=== PATIENT | female | born 1975 | race Caucasian/White ===

== ENCOUNTER 2024-06-03 15:56 | Outpatient (CLI) | payer OTHER, SELFPAY ==
--- NOTE | ~2024-06-03 | US_ITS ---
EXAMINATION: US venous doppler [facility] DATE: 06/03/2024 17:06 INDICATION: Left lower limb swelling TECHNIQUE: Grayscale ultrasound images without and with compression and Doppler ultrasound images of the bilateral lower extremity veins were obtained. COMPARISON: None. FINDINGS: The visualized portions of right common femoral vein, profunda (deep) femoral vein, femoral vein, pop liteal vein, posterior tibial veins, peroneal veins, gastrocnemius vein and greater saphenous vein ou tflow are patent. The visualized portions of left common femoral vein, profunda femoral vein, femoral vein, popliteal v ein, posterior tibial veins, peroneal veins, gastrocnemius vein and greater saphenous vein outflow ar e patent. IMPRESSION: 1. No deep venous thrombosis in either lower limb. Reviewed, dictated and finalized at location A.
--- OUTSIDE RECORDS SUMMARY | 2024-06-03 17:47 | XMS_ITS | Referral Summary ---
Author Organization [facility] Address [address] [place] [address] Care Team Providers Care Package Liner Name Role Phone Dmitry Rowan MD Primary Care Provider [phone] Encounters Date Type Department Care Team Description 04/05/2024 Telephone [facility] Diabetes and Endocrinology [address] [place] [phone] Cali King MD call to patient for Insurance information from Last 3 Months Social History Tobacco Use Types Packs/Day Years Used Date Smoking Tobacco: Never Assessed Personal Safety Answer Date Recorded Getting School Help Needed Not on file 05/13 Comments Unknown Sex and Gender Information Value Date Recorded Sex Assigned at Not on file 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
--- OUTSIDE RECORDS SUMMARY | 2024-06-03 17:47 | XMS_ITS | Data Portability ---
Author Organization [facility] Isiah Frank Address [address] [facility] [address] [place] [address] Care Team Providers Care Dedicated Intermodal Truck Driver Name Role Phone MICHAEL ROWAN Primary Care Provider Assessment Encounter Date Assessment Date Assessment LastModified by Organization Details LastModified Time 05/23/2023 05/23/2023 Check labs continue medications weight reduction is a tough thing for her to do her rheumatological condition appears stable obtain old records follow-up with al in 4 months [email or web address] Not available 05/27/2023 16:18:27 09/19/2023 09/19/2023 we will continue current therapy last blood work has been reviewed healthy lifestyle care instructions discussed. Medications for her disease processes discussed all questions answered she will follow up in 4 months [email or web address] Not available 09/30/2023 16:53:52 01/23/2024 01/23/2024 blood work we wi ll try to get a GLP 1 agent healthy lifestyle care instructions she needs to get up-to-date on mammograms and colonoscopies medical problems appear to be stable follow up in 4 months [email or web address] Not available 01/27/2024 21:26:57 Plan of Treatment Reminders Order Date Submit Date Provider Last Modified By Organization Details Last Modified Time Details Appointments ANY 15 2024 09:00A Angela Rowan MD Not available Not available Not available ANY 15 2024 09:00A Angela Rowan MD Not available Not available Not available Lab lh + FSH, serum 2023 024 [facility], [address] [place] [address], [address], [place], [address], 01/24/2024 08:26:41 cortisol, serum or plasma 2023 024 [email or web address], [address], [address], [place], [address], 05/20/2024 11:09:36 HbA1c (hemoglob in A1c), blood 2023 024 [email or web address] [facility], [address], [address], [place], [address], 02/13/2024 15:19:21 TSH, ultra-sen sitive, serum 2023 024 [email or web address], [address], [address], [place], [address], 05/20/2024 11:09:07 T3, free, serum or plasma 2023 024 [email or web address], [address], [address], [place], [address], 05/20/2024 11:09:18 CBC w/ auto diff 2023 024 [facility], [address], [address], [place], [address], 01/29/2024 12:46:06 unlisted lab - T4, free 2023 024 [facility], [address], [address], [place], [address], 05/20/2024 11:08:59 CMP, serum or plasma 2023 024 [facility], [address], [address], [place], [address], 01/24/2024 18:32:56 HbA1c (hemoglob in A1c), blood 2023 024 [facility], [address] [place] [address], [address], [place], [address], 05/31/2023 11:09:22 lipid panel, serum 2023 024 [facility], [address] [place] [address], [facility] [address], [place], [address], 06/16/2023 16:23:31 CMP, serum or plasma 2023 024 [facility], [address] [place] [address], [facility] [address], [place], [address], 06/16/2023 16:23:31 CBC w/ auto diff 2023 024 [email or web address], [address] [place] [address], [facility] [address], [place], [address], 07/27/2023 16:24:48 Referral None recorded. Procedures None recorded. Surgeries None recorded. Imaging None recorded. Medication Orders Wegovy 0.25 mg/0.5 mL subcutane ous pen injector 2023 024 [facility][id number], [address] [place], [place], [id number], 06/03/2024 10:04:38 fluoxetin e 10 mg capsule [address] [facility] #[id number], [address] [place], [place], [id number], 05/23/2023 17:15:41 lisinopri l 20 mg-hydroc hlorothia zide 12.5 mg tablet [address] [facility] #[id number], [address] [facility], [place], [place], [id number], 05/23/2023 17:15:41 Patient TargetsNo targets recorded. Patient Instructions Encounter Date Encounter Id Patient Instructions Last Modified By Organization Details Last Modified Time 09/19/2023 [id number] A healthy lifestyle: care instructions [email or web address] Not available 09/19/2023 12:34:37 01/23/2024 [id number] A healthy lifestyle: care instructions [email or web address] Not available 01/23/2024 11:54:12 Reason for Referral None Reported. Results Created Date Observation Date Name Description Value Unit Range Abnormal Flag Note LastModifiedBy Organization Detail LastModifiedTime 02/23/20 24 02/23/2024 US, liver No observ ation record ed. [facility]) [address] [place] [address] [facility], [place], [address], 03/20/2024 13:02:34 06/04/19 elect rocdenise tonggr am No observ ation record ed. [facility] In-Office Order Internal Use Only DO Not Attach Compendium DO Not Attach Compendium, Do Not Delete/merge, [id number] 06/03/2024 10:38:20 06/04/19 25 06/03/2024 elect rocdenise diogr am No observ ation record ed. ARNAUD In-Office Order Internal Use Only DO Not Attach Compendium DO Not Attach Compendium, Do Not Delete/merge, [id number] 06/03/2024 10:54:23 06/04/19 25 06/03/2024 CT, angio gram, chest , w/ contr ast No observ ation record ed. [facility] [address] [place], [address], 06/03/2024 16:22:34 06/04/19 25 06/03/2024 US, doppl er, venou s No observ ation record ed. [facility] [address] [facility] [address], [place], [address], 06/03/2024 18:11:32 04/09/15 2406/03/2024 US, doppl er, venou s No observ ation record ed. [facility] [address], [place], [address], 06/03/2024 18:12:20 Result Notes None recorded. Problems Name Problem SNOMED Code Status Onset Date Resolution Date Notes Provider Name and Address Organization Details Recorded Time Essential hypertension 32371837 Active 2023 Michael Rowan MD Attn: Julee mackay,[address] [facility], [place], [address], [place] [facility] 4 16:52:37 Morbid obesity 253434048 Active 2023 Michael Rowan MD Attn: Julee mackay,[address] [facility], [place], [address], [place] [facility] 4 16:52:39 Ankylosing spondylitis 7763035 Active 2023 Michael Rowan MD Attn: Julee mackay,[address] [facility], [place], [address], [place] [facility] 4 16:52:40 Gastroesophage al reflux disease without esophagitis 313471452 Active 2023 Michael Rowan MD Attn: Julee mackay,[address] [facility], [place], [address], [place] [facility] 4 16:52:47 Anxiety 51676813 Active 2023 Michael Rowan MD Attn: Julee mackay,[address] [facility], [place], [address], [place] [facility] 4 16:52:49 Prediabetes 091319603 Active 2023 Michael Rowan MD Attn: Julee mackay,[address] [facility], [place], [address], [place] [facility] 4 16:52:50 Insomnia 755989931 Active 2023 Michael Rowan MD Attn: Julee mackay,[address] [facility], [place], [address], [place] [facility] 4 16:53:03 Obstructive sleep apnea syndrome 39604465 Active 2023 Michael Rowan MD Attn: Julee mackay,[address] [facility], [place], [address], [place] [facility] 4 16:53:35 Fatigue 13883670 Active 2023 Triston Nicolas [place] null, [place] [facility] 4 11:03:07 Non-alcoholic fatty liver 144962326 Active 2023 Triston Nicolas [place], [place] [facility] 4 11:17:54 Dyspnea on exertion 30000043 Active 2024 Triston Nicolas [place], [place] [facility] 5 10:47:57 Edema of lower extremity 705256918 Active 2024 Triston Nicolas [place] null, [place] [facility] 5 10:47:58 Problem Notes None recorded. Procedures Surgical History Date Name Laterality Status Provider Name and Address Organization Details Recorded Time Knee Surgery completed SHAYLEE Bear [place] - [facility] 05/23/2023 14:33:40 Imaging Results Imaging Date Name Status LastModified by Organization Details LastModified Time 02/23/2024 US, liver completed [facility] [address] [facility] [address] [place] [address], [address], 03/20/2024 13:02:34 06/03/2024 electrocardiogram completed ARNAUD In-Offi ce Order Internal Use Only DO Not Attach Compendium DO Not Attach Compendium, Do Not Delete/merge, [id number] 06/03/2024 10:38:20 06/03/2024 electrocardiogram completed ARNAUD In-Offi ce Order Internal Use Only DO Not Attach Compendium DO Not Attach Compendium, Do Not Delete/merge, [id number] 06/03/2024 10:54:23 06/03/2024 CT, angiogram, chest, w/ contrast active [facility] [address] [place], [address], 06/03/2024 16:22:34 06/03/2024 US, doppler, venous active [facility] [address] [facility] [address], [place], [address], 06/03/2024 18:11:32 06/03/2024 US, doppler, venous active [facility] [address] [facility] [address], [place], [address], 06/03/2024 18:12:20 Procedure Notes None recorded. Medical Equipment None Reported. Allergies Allergen ID Allergen Name Allergen Category Reaction Reaction Severity Criticality Documentation Date Start Date Code Code System Note Provider Name and Address Organization Details Recorded Time 949759 citrus bioflavon oids food,medi cation other Not available Not available 05/23/2023 23727 2 RxNorm SOB, mouth sores /lesi ons Not Available Not Available Not Available 255957 atorvasta tin medicatio n myalgias (muscle pain) Not available Not available 06/01/2023 45347 RxNorm Not Available Not Available Not Available Medications Name Sig Start Date Stop Date Status Note LastModified by Organization Details LastModified Time Prescript ion - Prior Authoriza tion Request active Not Available Not Available Not Available celecoxib 200 mg capsule 06/03 completed Not Available Not Available Not Available atorvasta tin 10 mg tablet TAKE 1 TABLET BY MOUTH EVERY DAY 05/22 completed Not Available Not Available Not Available lisinopri l 20 mg-hydroc hlorothia zide 12.5 mg tablet TAKE 1 TABLET BY MOUTH EVERY DAY active Not Available Not Available No t Available prednison e 5 mg tablet 06/03 completed Not Available Not Available Not Available lysine 1,000 mg tablet Take 1 tablet every day by oral route. active Not Available Not Available No t Available leflunomi de 10 mg tablet 06/03 completed Not Available Not Available Not Available omeprazol e 40 mg capsule,d elayed release TAKE 1 CAPSULE BY MOUTH DAILY BEFORE MEAL active Not Available Not Available No t Available methotrex ate sodium 2.5 mg tablet TAKE 5 TABLETS BY MOUTH EVERY MORNING AND 5 TABLETS EVERY EVENING ONE DAY A WEEK. 06/03 completed Not Available Not Available Not Available fluoxetin e 10 mg capsule TAKE 1 CAPSULE BY MOUTH DAILY 2024 active Not Available Not Available Not Avai lable diclofena c sodium 75 mg tablet,de layed release 09/18 completed Not Available Not Available Not Available folic acid 1 mg tablet 06/03 completed Not Available Not Available Not Available lisinopri l 10 mg-hydroc hlorothia zide 12.5 mg tablet TAKE 1 TABLET BY MOUTH DAILY 2024 active Not Available Not Available Not Avai lable zolpidem 10 mg tablet TAKE 1 TABLET BY MOUTH EVERY DAY AT BEDTIME 06/03 completed Not Available Not Available Not Available methylpre dnisolone 4 mg tablets in a dose pack FOLLOW PACKAGE DIRECTIO NS 06/03 completed Not Available Not Available Not Available amoxicill in 500 mg-potass ium clavulana te 125 mg tablet TAKE 1 TABLET BY MOUTH EVERY 8 HOURS FOR 7 DAYS 05/22 completed Not Available Not Available Not Available tobramyci n 0.3 %-dexamet hasone 0.1 % eye drops,juan pension SHAKE LIQUID AND INSTILL 1 DROP IN BOTH EYES THREE TIMES DAILY 05/22 completed Not Available Not Available Not Available ezetimibe 10 mg tablet 09/18 completed Patient stated she has had prior converst ation with stating she can't take this medicine Not Available Not Available Not Available guaifenes in 400 mg tablet Take 1 tablet every 4 hours by oral route. active Not Available Not Available No t Available Kat Allergy 180 mg tablet Take 1 tablet every day by oral route. active Not Available Not Available No t Available One-A-Day Womens Formula 18 mg iron-400 mcg-500 mg Ca tablet Take by oral route. active Not Available Not Available No t Available Simponi ARIA 06/03 completed Not Available Not Available Not Available Wegovy 0.25 mg/0.5 mL subcutane ous pen injector inject 0.25mg weekly for 4wks then go to 0.5mg weekly 06/03 completed Not Available Not Available Not Available Wegovy 0.5 mg/0.5 mL subcutane ous pen injector Inject 0.5 mg every week by subcutan eous route. 06/03 completed Not Available Not Available Not Available Hair, Skin and Nails (biotin) active Not Available Not Available Not Available Vitals Date Recorded Body height Body mass index (BMI) Body weight Heart rate Oxygen saturation Oxygen saturation in Arterial blood by Pulse oximetry Systolic blood pressure Diastolic blood pressure Provider Name and Address Organization Details Last Updated DateTime 4 167.64 cm 47.3 kg/m2 577522. 56 g 88 /min 98 % 98 % 136 mm[Hg] 80 mm[Hg] SHAYLEE Bear [facility] 4 14:36:26 Date Recorded Body height Body mass index (BMI) Body weight Heart rate Oxygen saturation Oxygen saturation in Arterial blood by Pulse oximetry Systolic blood pressure Diastolic blood pressure Provider Name and Address Organization Details Last Updated DateTime 4 167.64 cm 47.6 kg/m2 747878. 75 g 74 /min 97 % 97 % 140 mm[Hg] 84 mm[Hg] Yesika Kidd MA [facility] 4 10:26:15 Date Recorded Body height Body mass index (BMI) Body weight Heart rate Oxygen saturation Oxygen saturation in Arterial blood by Pulse oximetry Systolic blood pressure Diastolic blood pressure Provider Name and Address Organization Details Last Updated DateTime 4 167.64 cm 48 kg/m2 712434. 65 g 85 /min 97 % 97 % 132 mm[Hg] 70 mm[Hg] Joanie Lopez MA [facility] 4 10:03:30 Date Recorded Body height Body mass index (BMI) Body weight Heart rate Oxygen saturation Oxygen saturation in Arterial blood by Pulse oximetry Systolic blood pressure Diastolic blood pressure Provider Name and Address Organization Details Last Updated DateTime 5 167.64 cm 47.2 kg/m2 157631. 69 g 75 /min 97 % 97 % 146 mm[Hg] 76 mm[Hg] Judith Raymundo MA [facility] 5 10:02:05 Social History Question Answer Notes LastModified by Organizat ion Details LastModified Time Tobacco Smoking Status Never Smoker SHAYLEE Bear null, [facility] 05/23/2023 14:33:56 Do You Have An Advance Directive? No Information not available 09/19/2023 What Is Your Level Of Alcohol Consumption? None Information not available 09/19/2023 Are You Blind Or Do You Have Difficulty Seeing? No Wears Glasses Information not available 09/19/2023 What Is Your Level Of Caffeine Consumption? Heavy Information not available 09/19/2023 In The 14 Days Before Symptom Onset, Have You Had Close Contact With A Laboratory-confir med COVID-19 While That Case Was Ill? No Information not available 01/23/2024 In The 14 Days Before Symptom Onset, Have You Had Close Contact With A Person Who Is Under Investigation For COVID-19 While That Person Was Ill? No Information not available 01/23/2024 Have You Been To An Area Known To Be High Risk For COVID-19? No Information not available 01/23/2024 Are You Currently Employed? Yes Information not available 01/23/2024 Are You Deaf Or Do You Have Serious Difficulty Hearing? No Information not available 09/19/2023 What Type Of Diet Are You Following? REGULAR Information not available 09/19/2023 Are There Any Guns Present In Your Home? No Information not available 01/23/2024 What Was The Date Of Your Most Recent Tobacco Screening? 06/03/2024 Non Smoker [email or web address] Information not available 06/03/2024 What Is Your Relationship Status? Information not available 09/19/2023 Do You Use Your Seat Belt Or Car Seat Routinely? Yes Information not available 09/19/2023 Do You Have Smoke And Carbon Monoxide Detectors In Your Home? Yes Information not available 09/19/2023 Do You Feel Stressed (tense, Restless, Nervous, Or Anxious, Or Unable To Sleep At Night)? [id number] Information not available 09/19/2023 Do You Use Any Illicit Or Recreational Drugs? No Information not available 09/19/2023 Do You Use Sunscreen Routinely? Yes Information not available 01/23/2024 Has Tobacco Cessation Counseling Been Provided? No Information not available 09/19/2023 Do You Or Have You Ever Used Any Other Forms Of Tobacco Or Nicotine? No Information not available 09/19/2023 Sex: Female Functional Status Question Answer Note LastModified by Organization D etails LastModified Time Are you able to care for yourself? Yes Information n ot available 09/19/2023 What is your exercise level? None Information not available 09/19/2023 Mental Status None recorded. Family History Relationship Description Onset Age of this Age Resolved Age Notes LastModified by Organization Details LastModified Time Brother Hypertensive disorder [email or web address] Not available 04/28 14:42:14 Brother Hypercholest erolemia [email or web address] Not available 04/28 14:42:33 Father Hypertensive disorder [email or web address] Not available 04/28 14:42:14 Father Hypercholest erolemia [email or web address] Not available 04/28 14:42:33 Father Malignant neoplasm of skin metast asis to brain [email or web address] Not available 05/23/2023 14:43:21 Mother Hypertensive disorder [email or web address] Not available 04/28 14:42:14 Mother Hypercholest erolemia [email or web address] Not available 04/28 14:42:33 Medical History Condition Response High Blood Pressure Y Anxiety Disorder Y Muscle, Joint, or Bone Problems Y Acid Reflux (GERD) Y Allergies Y High Cholesterol Y Gynecological HistoryNo gynecological history recorded. Obstetrics History GPAL:G 0 P 0 0 0 0 Immunizations Vaccine Type Date Status Note Provider Nam e and Address Organization Details Recorded Time Influenza, split virus, quadrivalent, preservative 1 completed DENA BearA null, [place] [facility] 05/23/2023 14:34:18 Influenza, MDCK, quadrivalent, PF 2 completed Kyra Barnes RMA [place], [place] [facility] 05/23/2023 14:34:18 COVID-19, mRNA, LNP-S, PF, 30 mcg/0.3 mL dose 1 completed Kyra Barnes R[place] [facility] 05/23/2023 14:34:18 COVID-19, mRNA, LNP-S, PF, 30 mcg/0.3 mL dose 1 completed Kyra Barnes, RMA [place] [facility] 05/23/2023 14:34:18 COVID-19, mRNA, LNP-S, PF, 30 mcg/0.3 mL dose 1 completed Kyra Barnes, R[place] [facility] 05/23/2023 14:34:18 COVID-19, mRNA, LNP-S, PF, 30 mcg/0.3 mL dose 0 completed Kyra Barnes, [place] [facility] 05/23/2023 14:34:18 COVID-19, mRNA, LNP-S, PF, 30 mcg/0.3 mL dose 0 completed Kyra Barnes R[place] [facility] 05/23/2023 14:34:18 Past Encounters Encounter ID Performer Location Encounter Start Date Encounter Closed Date Diagnosis/Indication Diagnosis SNOMED-CT Code Diagnosis ICD10 Code Diagnosis Note [id number] MD Opal Lopez (Adult Med) [address] [place] [address] 05/23/2023 14:06:14 05/23/2023 15:22:44 Hyperglycemia 68085169 R73.9 Gastroesop hageal reflux disease without esophagitis 890335801 K21.9 Obesity 626394354 E66.9 Insomnia 444429938 G47.0 0 Essential hypertension 26912851 I10 Ankylosing spondylitis 4947005 M45.9 [id number] MD Opal Lopez (Adult Med) [address] [place] [address] 09/19/2023 10:11:34 09/19/2023 11:01:19 Morbid obesity 191577405 E66.01 Essential hypertension 14035151 I10 Ankylosing spondylitis 9854064 M45.9 Gastroesop hageal reflux disease without esophagitis 783042873 K21.9 Anxiety 55105853 F41.9 Prediabetes 657144827 R7 3.03 Insomnia 782342406 G47.0 0 Obstructiv e sleep apnea syndrome 63980107 G47.33 [id number] MD Opal Lopez (Adult Med) [address] [place] [address] 01/23/2024 09:52:17 01/23/2024 11:07:24 Morbid obesity 503141645 E66.01 Fatigue 97158152 R53.83 Non-menopa usal hot flash 8396009990 57219 R23.2 Diabetes m ellitus screening 251257709 Z13.1 Essential hypertension 89018140 I10 Anxiety 05083004 F41.9 Gastroesop hageal reflux disease without esophagitis 159273625 K21.9 Obstructiv e sleep apnea syndrome 12274727 G47.33 [id number] [facility] [place] [address] [place] [address] 06/03/2024 09:49:50 06/03/2024 10:46:32 Body mass index 40+ - severely obese 243074540 Z68.42 Morbid obesity 694856131 E66.01 Dyspnea 929126079 R06.00 Dyspnea on exertion 6084 5006 R06.09 Edema of l ower extremity 400920888 R60.0 Edema of l eft lower limb 867655223 R60.0 Health Concerns Section Related Observation LastModified by Organization Detai ls LastModified Time None Recorded Concern Status LastModified by Organization Details LastModified Time None Recorded Advance Directives Directive N: Payers Encounter Date Sequence Insurance Name Policy Number Policy [place] Covered Member ID [place] Member ID Guarantor Name 05/23/2023 1 [place] [id number] Sandhya Jamie [id number] Sandhya Jamie 09/19/2023 1 [place] [id number] Sandhya Jamie [id number] Sandhya Jamie 01/23/2024 1 [place] [id number] Sandhya Jamie [id number] Sandhya Jamie Notes Date Note Type Note Provider Name and Address Organization Details Recorded Time 05/23/2023 text/html We need to check an A1c anxiety doing fine on fluoxetine GERD stable obesity already lose weight insomnia doing well on current meds ankylosing spondylitis she is on injectables hypertension no headache no dizziness Michael Rowan MD Attn: Accounting,[address] [place], [address], [place] [facility] 05/27/2023 16:19:04 09/19/2023 text/html 1. Hypertension no headache no dizziness.2. Insomnia using her Ambien no side effects appears to be efficacious3. Obesity needs help4. Ankylosing spondylitis on methotrexate and Simponi with breakthrough Celebrex5. GERD no nausea no vomiting Michael Rowan MD Attn: Accounting[address] [facility], [place], [address], [facility] 09/30/2023 16:54:12 01/23/2024 text/html hypertension no headache or dizziness. 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 Daryl marie in his up-to-date on mammograms uses her CPAP for sleep apnea Michael Rowan MD Attn: Accounting[address] , [place], [address], [facility] 01/27/2024 21:27:18 OBGyn Episode No OBEpisode recorded.
--- OUTSIDE RECORDS SUMMARY | 2024-06-03 17:47 | XMS_ITS | Clinical Summary ---
Author Organization [facility] Address [address] [place] [address] Care Team Providers Care Check Processing Clerk Name Role Phone Dmitry Rowan MD Primary Care Provider [phone] Source Comments [facility],non-owned Affiliates and Associated Physician Practices is amultiple site organization consisting of ambulatory clinics and hospital sitesin [place], [place], [place] and [place]. This disclosure is being madepursuant to the Care Everywhere program and may not contain all information available regarding this patient. Last updated 17.[facility] Social Point Social History Tobacco Use Types Packs/Day Years Used Date Smoking Tobacco: Never Assessed Sex and Gender Information Value Date Recorded Sex Assigned at Not on file Gender Identity Not on file Sexual Orientation Not on file Plan of Treatment Upcoming Encounters Date Type Department Care Team (Late st Contact Info) Description 11/26/2024 1:00 PM CDT Office Visit [facility] - Rheumatology [address] [place] [address], [place] [phone] Renetta Mosquera MD [address] [place] [address] [place] [id number] Health Maintenance Due Date Last Done Comments COLOGUARD (AGES 45-75) - COL ON CA SCREENING 1976 COLON MONITORING 1976 COLONOSCOPY - COLON CA SCREENING 1976 CT COLONOGRAPHY - COLON CA SCREENING 1976 Colorectal Cancer Screening 1976 FIT - COLON CA SCREENING 1976 FLEX SIG - COLON CA SCREENING 1976 LIPID TESTING 1976 MAMMOGRAM 1976 PAP SMEAR 1976 HIV SCREENING 08/14/1991 HEPATITIS C SCREENING 08/09/1994 DTAP/TDAP/TD VACCINES (1 - Tdap) 08/14/1995 HEPATITIS B VACCINE (1 of 3 - 19+ 3-dose series) 08/14/1995 COVID-19 VACCINE (1 - 2023-2 5 season) 2023 INFLUENZA VACCINE (#1) 2023 DEPRESSION SCREENING 02/28/2024 ZOSTER VACCINE (1 of 2) 2026 HIB VACCINE Aged Out No longer eligi ble based on patient's age to complete this topic HPV VACCINE Aged Out No longer eligi ble based on patient's age to complete this topic MENINGOCOCCAL (Group B) VACC INE SHARED DECISION-MAKING Aged Out No longer eligibl e based on patient's age to complete this topic MENINGOCOCCAL GROUPS A/C/Y/W VACCINE Aged Out No longer eligible b ased on patient's age to complete this topic PNEUMOCOCCAL VACCINE Aged Out No long er eligible based on patient's age to complete this topic Care Teams Check Processing Clerk Relationship Specialty Start Date End Date Dmitry Rowan MD [address] [place] [id number] PCP - General Internal Medicine 05/22/24
--- OUTSIDE RECORDS SUMMARY | 2024-06-03 17:48 | XMS_ITS | Data Portability ---
Author Organization [place] [facility], Main Office Address [address] [place] [address] Assessment Encounter Date Assessment Date Assessment LastModified by Organization Details LastModified Time 07/08/2022 07/08/2022 No thyroid cancer nothing to suggest ME in 2 in family will try to get G LP injectable for joint pain check inflammatory factors hypertension check blood work fatigue check blood work obesity check blood work see me back in 4 weeks if starts injectable 4 months if not. Blood work reviewed [id number] Not available 07/24/2022 13:32:56 12/07/2022 12/07/2022 Will check blood work she needs to get back on her medications regularly I would like to see her back in about 1 month Not available 12/10/2022 13:42:37 Plan of Treatment Reminders Order Date Submit Date Provider Last Modified By Organization Details Last Modified Time Details Appointments None recorded. Lab T3, free, serum or plasma 2022 023 [email or web address] [facility] (Lab), [address] [place], [address], 16:44:29 T4, free, serum 2022 023 [email or web address] [facility] (Lab), [address] [place], [address], 16:44:29 TSH, serum or plasma 2022 023 [facility] (Lab), [address] [place], [address], 10/11/202 3 16:44:29 CBC w/ auto diff [address] (Lab), [address] [place], [address], 3 16:44:29 lipid panel, serum [address] (Lab), [address] [place], [address], 3 16:44:29 CMP, serum or plasma [address] (Lab), [address] [place], [address], 3 16:44:29 ESR (erythrocyt e sedimentati on rate), blood [address] (Lab), [address] [place], [address], 3 16:44:29 C-reactive protein, quantitativ e, serum or plasma 2022 023 [email or web address] [facility] (Lab), [address] [place], [address], 4 09:42:32 glycohemogl obin, total, blood [address] (Lab), [address] [place], [address], 3 16:44:29 vitamin D, 25-hydroxy, total, serum 2022 023 [email or web address] [facility] (Lab), [address] [place], [address], 3 14:10:16 HbA1c (hemoglobin A1c), blood 2022 023 [facility] (Lab), [address] [place], [address], 3 11:55:52 TSH, serum or plasma 2022 023 [facility] (Lab), [address] [place], [address], 3 11:55:52 T4, free, serum 2022 023 [facility] (Lab), [address] [place], [address], 3 11:55:53 T3, free, serum or plasma 2022 023 [facility] (Lab), [address] [place], [address], 3 11:55:53 ESR (erythrocyt e sedimentati on rate), blood 2022 023 [facility] (Lab), [address] [place], [address], 3 11:55:53 rf (rheumatoid factor), serum 2022 023 [facility] (Lab), [address] [place], [address], 3 09:51:16 C-reactive protein, quantitativ e, serum or plasma 2022 023 [facility] (Lab), [address] [place], [address], 3 11:55:53 Referral None recorded. Procedures None recorded. Surgeries None recorded. Imaging None recorded. Medication Orders Wegovy 0.25 mg/0.5 mL subcutaneou s pen injector 2022 023 [email or web address] [facility] #[id number], [address], [place], [id number], 3 16:44:29 Wegovy 0.5 mg/0.5 mL subcutaneou s pen injector 2022 023 [email or web address] [facility] #[id number], [address], [place], [id number], 3 16:44:29 Wegovy 0.25 mg/0.5 mL subcutaneou s pen injector 2022 023 [email or web address] 45 [facility] #[id number], [address], [place], [id number], 3 11:32:49 Wegovy 0.5 mg/0.5 mL subcutaneou s pen injector 2022 023 [email or web address] 45 [facility] #[id number], [address], [place], [id number], 11:32:52 Patient TargetsNo targets recorded. Patient InstructionsNo instructions recorded. Reason for Referral None Reported. Results Created Date Observation Date Name Description Value Unit Range Abnormal Flag Note LastModifiedBy Organization Detail LastModifiedTime 12/08/1912/07/2022 CBC/C OMPLE TE BLD COUNT W/DIF F white blood cells 9.3 x10'3 /uL 4.2-10 .8 Not Available [facility] (Lab) [address] [place], [address], 12/07/2022 14:04:41 12/08/1912/07/2022 CBC/C OMPLE TE BLD COUNT W/DIF F red blood cells 4.62 x10'6 /uL 3.80-5 .20 Not Available [facility] (Lab) [address] [place], [address], 12/07/2022 14:04:41 12/08/1912/07/2022 CBC/C OMPLE TE BLD COUNT W/DIF F hemoglobin 13.3 g/dL 12.0-1 5.6 Not Available [facility] (Lab) [address] [place], [address], 12/07/2022 14:04:41 12/08/1912/07/2022 CBC/C OMPLE TE BLD COUNT W/DIF F hematocrit 41.8 % 35.7-4 5.7 Not Available [facility] (Lab) [address] [place], [address], 12/07/2022 14:04:41 12/08/1912/07/2022 CBC/C OMPLE TE BLD COUNT W/DIF F mean red cell volume 90.5 fL 82.0-9 9.0 Not Available [facility] (Lab) [address] [place], [address], 12/07/2022 14:04:41 12/08/1912/07/2022 CBC/C OMPLE TE BLD COUNT W/DIF F mean red cell hemoglobin 28.8 pg 27.0-3 3.0 Not Available [facility] (Lab) [address] [place], [address], 12/07/2022 14:04:41 12/08/1912/07/2022 CBC/C OMPLE TE BLD COUNT W/DIF F mean RBC HGB concentratio n 31.8 g/dL 31.0-3 6.0 Not Available [facility] (Lab) [address] [place], [address], 12/07/2022 14:04:41 12/08/19 23 12/07/2022 CBC/C OMPLE TE BLD COUNT W/DIF F red cell distribution width 14.0 % 11.8-1 5.5 Not Available [facility] (Lab) [address] [place], [address], 12/07/2022 14:04:41 12/08/1912/07/2022 CBC/C OMPLE TE BLD COUNT W/DIF F platelets 423 x10'3 /uL 150-40 0 high Not Available [facility] (Lab) [address] [place], [address], 12/07/2022 14:04:41 12/08/1912/07/2022 CBC/C OMPLE TE BLD COUNT W/DIF F mean platelet volume 10.5 fL 9.0-12 .4 Not Available [facility] (Lab) [address] [place], [address], 12/07/2022 14:04:41 12/08/1912/07/2022 CBC/C OMPLE TE BLD COUNT W/DIF F neutrophils 57.7 % 39.0-7 2.0 Not Available [facility] (Lab) [address] [place], [address], 12/07/2022 14:04:41 12/08/1912/07/2022 CBC/C OMPLE TE BLD COUNT W/DIF F lymphocytes 32.5 % 16.0-4 7.0 Not Available [facility] (Lab) [address] [place], [address], 12/07/2022 14:04:41 12/08/1912/07/2022 CBC/C OMPLE TE BLD COUNT W/DIF F monocytes 6.0 % 5.0-12 .0 Not Available [facility] (Lab) [address] [place], [address], 12/07/2022 14:04:41 12/08/19 23 12/07/2022 CBC/C OMPLE TE BLD COUNT W/DIF F eosinophils 2.1 % 1.0-7. 0 Not Available [facility] (Lab) [address] [facility] [place], [address], 12/07/2022 14:04:41 12/08/1912/07/2022 CBC/C OMPLE TE BLD COUNT W/DIF F basophils 0.8 % 0.0-2. 0 Not Available [facility] (Lab) [address] [place], [address], 12/07/2022 14:04:41 12/08/1912/07/2022 CBC/C OMPLE TE BLD COUNT W/DIF F immature granulocytes 0.9 % 0.00-0 .50 high Not Available [facility] (Lab) [address] [place], [address], 12/07/2022 14:04:41 12/08/1912/07/2022 CBC/C OMPLE TE BLD COUNT W/DIF F neutrophils, absolute count 5.39 x10'3 /uL 1.5-8. 0 Not Available [facility] (Lab) [address] [place], [address], 12/07/2022 14:04:41 12/08/1912/07/2022 CBC/C OMPLE TE BLD COUNT W/DIF F lymphocytes, absolute count 3.03 x10'3 /uL 1.07-3 .43 Not Available [facility] (Lab) [address] [place], [address], 12/07/2022 14:04:41 12/08/1912/07/2022 CBC/C OMPLE TE BLD COUNT W/DIF F monocytes, absolute count 0.56 x10'3 /uL 0.29-0 .99 Not Available [facility] (Lab) [address] [place], [address], 12/07/2022 14:04:41 12/08/19 23 12/07/2022 CBC/C OMPLE TE BLD COUNT W/DIF F eosinophils, absolute count 0.20 x10'3 /uL 0.02-0 .53 Not Available [facility] (Lab) [address] [place], [address], 12/07/2022 14:04:41 12/08/1912/07/2022 CBC/C OMPLE TE BLD COUNT W/DIF F basophils, absolute count 0.07 x10'3 /uL 0.01-0 .08 Not Available [facility] (Lab) [address] [place], [address], 12/07/2022 14:04:41 12/08/1912/07/2022 CBC/C OMPLE TE BLD COUNT W/DIF F immature granulocytes ,absolute 0.08 x10'3 /uL 0.00-0 .05 high Not Available [facility] (Lab) [address] [place], [address], 12/07/2022 14:04:41 12/08/1912/07/2022 CBC/C OMPLE TE BLD COUNT W/DIF F nucleated red blood cells 0.0 % -0 Not Available [facility] (Lab) [address] [place], [address], 12/07/2022 14:04:41 12/08/1912/07/2022 CBC/C OMPLE TE BLD COUNT W/DIF F NRBC# 0.00 x10'3 /uL Not Available [facility] (Lab) [address] [place], [address], 12/07/2022 14:04:41 12/08/1912/07/2022 SEDIM ENTAT ION RATE erythrocyte sedimentatio n rate 13 mm/HR 0-20 Not Available [facility] (Lab) [address] [place], [address], 12/07/2022 14:41:56 12/08/1912/07/2022 LIPID PANEL cholesterol 237 mg/dL 140-19 9 high NIH GRUPO NSUS RECOM MENDA TION FOR MARIIA STERO L: ADULT CHILD LOW RISK: <200 <170 BORDE RLINE : <200- 239 ----- HIGH RISK: >240 >200 Not Available [facility] (Lab) [address] [place], [address], 12/07/2022 14:42:05 12/08/1912/07/2022 LIPID PANEL triglyceride s 174 mg/dL 0-150 high NIH GRUPO NSUS REPOR T RECOM MENDA TION FOR TRIGL YCERI SHARAN: ADULT CHILD LOW RISK: <150 ----- BODER LINE: 150-1 99 ----- HIGH RISK: >200 ----- Not Available [facility] (Lab) [address] [place], [address], 12/07/2022 14:42:05 12/08/1912/07/2022 LIPID PANEL HDL cholesterol 61 mg/dL 40- Not Available [facility] (Lab) [address] [place], [address], 12/07/2022 14:42:05 12/08/1912/07/2022 LIPID PANEL LDL cholesterol, calculated 141 mg/dL 0-130 high NIH GRUPO NSUS REPOR T RECOM MENDA TIONS FOR LDL: ADULT CHILD LOW RISK <130 <110 (OPTI MAL LDL) <100 ----- BORDE RLINE : 130-1 59 ----- HIGH RISK: >160 >130 A TRIGL YCERI DE RESUL T >400 INVAL IDATE S THE CALCU LATIO N FOR LDL FRACT IONAT ION - THE LDL RESUL T WILL NOT BE REPOR SHREE. Not Available [facility] (Lab) [address] [place], [address], 12/07/2022 14:42:05 12/08/19 23 12/07/2022 COMPR EHENS DARCY METAB OLIC PANEL sodium 138 mmol/ L 137-14 5 Not Available [facility] (Lab) [address] [place], [address], 12/07/2022 14:42:16 12/08/1912/07/2022 COMPR EHENS DARCY METAB OLIC PANEL potassium 4.3 mmol/ L 3.5-5. 1 Not Available [facility] (Lab) [address] [place], [address], 12/07/2022 14:42:16 12/08/1912/07/2022 COMPR EHENS DARCY METAB OLIC PANEL chloride 105 mmol/ L 98-107 Not Available [facility] (Lab) [address] [place], [address], 12/07/2022 14:42:16 12/08/1912/07/2022 COMPR EHENS DARCY METAB OLIC PANEL carbon dioxide 26 mmol/ L 22-30 Not Available [facility] (Lab) [address] [place], [address], 12/07/2022 14:42:16 12/08/1912/07/2022 COMPR EHENS DARCY METAB OLIC PANEL anion gap 11.3 mmol/ L 14-22 low Not Available [facility] (Lab) [address] [place], [address], 12/07/2022 14:42:16 12/08/1912/07/2022 COMPR EHENS DARCY METAB OLIC PANEL glucose 93 mg/dL 70-99 Not Available [facility] (Lab) [address] [place], [address], 12/07/2022 14:42:16 12/08/1912/07/2022 COMPR EHENS DARCY METAB OLIC PANEL BUN 17 mg/dL 8-19 Not Available [facility] (Lab) [address] [place], [address], 12/07/2022 14:42:16 12/08/1912/07/2022 COMPR EHENS DARCY METAB OLIC PANEL creatinine 0.64 mg/dL 0.66-1 .25 low Not Available [facility] (Lab) [address] [place], [address], 12/07/2022 14:42:16 12/08/1912/07/2022 COMPR EHENS DARCY METAB OLIC PANEL GFR >60 Refer ence Range : [place] ge GFR Healt hy Adult : >60 mL/mi n/1.7 3 m2 Chron ic Kidne y Disea se: 15-60 mL/mi n/1.7 3 m2 Kidne y Failu re: <15/m L/min /1.73 m2 www.n iddk. nih.g ov The MDRD study equat ion has not been valid ated in child jennifer <18 years of age; pregn ant women ; the elder ly >85 years of age; or in some racia l or ethni c subgr oups, such as Hispa nics. Outsi de the valid ated keith eters , estim ated GFR is less accur ate, requi ring clini shruthi judgm ent on a case- by-ca se basis . Clini shruthi inter preta tion for other races and ages must be made by the clini eros. The MDRD study equat ion has not been valid ated for the evalu ation of serum creat inine relat ed to nutri tj l statu s or medic ation usage . For perso ns <18 years of age, a pedia tric GFR calcu lator is avail able on the F websi te: https ://spenser w.kid juan.o rg/pr mehrdadess ional s/kdo qi/gf r_cal culat or Not Available [facility] (Lab) [address] [place], [address], 12/07/2022 14:42:16 12/08/1912/07/2022 COMPR EHENS DARCY METAB OLIC PANEL alkaline phosphatase 67 U/L 38-126 Not Available [facility] (Lab) [address] [place], [address], 12/07/2022 14:42:16 12/08/1912/07/2022 COMPR EHENS DARCY METAB OLIC PANEL alanine aminotransfe rase 26 U/L 0-35 Not Available [facility] (Lab) [address] [place], [address], 12/07/2022 14:42:16 12/08/1912/07/2022 COMPR EHENS DARCY METAB OLIC PANEL aspartate aminotransfe rase 19 U/L 15-37 Not Available [facility] (Lab) [address] [place], [address], 12/07/2022 14:42:16 12/08/1912/07/2022 COMPR EHENS DARCY METAB OLIC PANEL bilirubin, total 0.60 mg/dL 0.20-1 .30 Not Available [facility] (Lab) [address] [place], [address], 12/07/2022 14:42:16 12/08/1912/07/2022 COMPR EHENS DARCY METAB OLIC PANEL calcium 10.6 mg/dL 8.4-10 .2 high Not Available [facility] (Lab) [address] [place], [address], 12/07/2022 14:42:16 12/08/1912/07/2022 COMPR EHENS DARCY METAB OLIC PANEL total protein 7.3 g/dL 6.3-8. 2 Not Available [facility] (Lab) [address] [place], [address], 12/07/2022 14:42:16 12/08/1912/07/2022 COMPR EHENS DARCY METAB OLIC PANEL albumin 4.3 g/dL 3.4-5. 0 Not Available [facility] (Lab) [address] [place], [address], 12/07/2022 14:42:16 12/08/1919 1212/07/2022 COMPR EHENS DARCY METAB OLIC PANEL globulin 3.0 g/dL 2.6-4. 2 Not Available [facility] (Lab) [address] [place], [address], 12/07/2022 14:42:16 12/08/19 23 12/07/2022 COMPR EHENS DARCY METAB OLIC PANEL A/G ratio 1.4 ratio 1.0-2. 0 Not Available [facility] (Lab) [address] [place], [address], 12/07/2022 14:42:16 12/08/1912/07/2022 T3 FREE free T3 4.0 pg/mL 2.77-5 .27 Not Available [facility] (Lab) [address] [place], [address], 12/07/2022 14:51:19 12/08/1912/07/2022 T4 FREE free T4 1.15 NG/dL 0.78-2 .19 Not Available [facility] (Lab) [address] [place], [address], 12/07/2022 14:51:21 12/08/1912/07/2022 VITAM IN D 25-HY DROXY [id number] 30.2 NG/mL 30-100 Vitam in D Statu s: Defic ient: <20 ng/mL Insuf ficie nt: 20-29 ng/mL Suffi cient : 30-10 0 ng/mL Not Available [facility] (Lab) [address] [place], [address], 12/07/2022 14:59:08 12/08/1912/07/2022 HEMOG LOBIN A1C HA1C 6.2 % 4.0-6. 0 high Diabe ilya Scree charis Crite manuel: <5.7% Consi stent with absen ce of diabe ilya 5.7-6 .4% Consi stent with incre ased risk for diabe ilya (pred iabet es) >OR=6 .5% Consi stent with diabe ilya REFER ENCE: Diabe ilya Care 2016, 39(White ppl.1 ):s13 -s22 Not Available [facility] (Lab) [address] [place], [address], 12/07/2022 15:06:39 12/08/1912/07/2022 TSH thyroid-stim ulating hormone 1.420 uIU/m L 0.465- 4.680 Not Available [facility] (Lab) [address] [place], [address], 12/07/2022 15:11:05 12/08/1912/07/2022 C REACT DARCY PROTE IN,UL TRA SENS C-reactive protein 0.91 mg/dL 0.0-0. 5 high Not Available [facility] (Lab) [address] [place], [address], 12/07/2022 15:17:46 05/23/19 24 05/23/2023 CBC/C OMPLE TE BLD COUNT W/DIF F white blood cells 8.6 x10'3 /uL 4.2-10 .8 Not Available [facility] (Lab) [address] [place], [address], 05/23/2023 16:28:23 05/23/19 24 05/23/2023 CBC/C OMPLE TE BLD COUNT W/DIF F red blood cells 4.20 x10'6 /uL 3.80-5 .20 Not Available [facility] (Lab) [address] [place], [address], 05/23/2023 16:28:23 05/23/19 24 05/23/2023 CBC/C OMPLE TE BLD COUNT W/DIF F hemoglobin 12.5 g/dL 12.0-1 5.6 Not Available [facility] (Lab) [address] [place], [address], 05/23/2023 16:28:23 05/23/19 24 05/23/2023 CBC/C OMPLE TE BLD COUNT W/DIF F hematocrit 37.9 % 35.7-4 5.7 Not Available [facility] (Lab) [address] [place], [address], 05/23/2023 16:28:23 05/23/19 24 05/23/2023 CBC/C OMPLE TE BLD COUNT W/DIF F mean red cell volume 90.2 fL 82.0-9 9.0 Not Available [facility] (Lab) [address] [place], [address], 05/23/2023 16:28:23 05/23/19 24 05/23/2023 CBC/C OMPLE TE BLD COUNT W/DIF F mean red cell hemoglobin 29.8 pg 27.0-3 3.0 Not Available [facility] (Lab) [address] [place], [address], 05/23/2023 16:28:23 05/23/19 24 05/23/2023 CBC/C OMPLE TE BLD COUNT W/DIF F mean RBC HGB concentratio n 33.0 g/dL 31.0-3 6.0 Not Available [facility] (Lab) [address] [place], [address], 05/23/2023 16:28:23 05/23/19 24 05/23/2023 CBC/C OMPLE TE BLD COUNT W/DIF F red cell distribution width 15.4 % 11.8-1 5.5 Not Available [facility] (Lab) [address] [place], [address], 05/23/2023 16:28:23 05/23/19 24 05/23/2023 CBC/C OMPLE TE BLD COUNT W/DIF F platelets 418 x10'3 /uL 150-40 0 high Not Available [facility] (Lab) [address] [place], [address], 05/23/2023 16:28:23 05/23/19 24 05/23/2023 CBC/C OMPLE TE BLD COUNT W/DIF F mean platelet volume 10.4 fL 9.0-12 .4 Not Available [facility] (Lab) [address] [place], [address], 05/23/2023 16:28:23 05/23/19 24 05/23/2023 CBC/C OMPLE TE BLD COUNT W/DIF F neutrophils 49.5 % 39.0-7 2.0 Not Available [facility] (Lab) [address] [place], [address], 05/23/2023 16:28:23 05/23/19 24 05/23/2023 CBC/C OMPLE TE BLD COUNT W/DIF F lymphocytes 41.0 % 16.0-4 7.0 Not Available [facility] (Lab) [address] [place], [address], 05/23/2023 16:28:23 05/23/19 24 05/23/2023 CBC/C OMPLE TE BLD COUNT W/DIF F monocytes 6.0 % 5.0-12 .0 Not Available [facility] (Lab) [address] [place], [address], 05/23/2023 16:28:23 05/23/19 24 05/23/2023 CBC/C OMPLE TE BLD COUNT W/DIF F eosinophils 2.6 % 1.0-7. 0 Not Available [facility] (Lab) [address] [place], [address], 05/23/2023 16:28:23 05/23/19 24 05/23/2023 CBC/C OMPLE TE BLD COUNT W/DIF F basophils 0.5 % 0.0-2. 0 Not Available [facility] (Lab) [address] [place], [address], 05/23/2023 16:28:23 05/23/19 24 05/23/2023 CBC/C OMPLE TE BLD COUNT W/DIF F immature granulocytes 0.4 % 0.00-0 .50 Not Available [facility] (Lab) [address] [place], [address], 05/23/2023 16:28:23 05/23/19 24 05/23/2023 CBC/C OMPLE TE BLD COUNT W/DIF F neutrophils, absolute count 4.26 x10'3 /uL 1.5-8. 0 Not Available [facility] (Lab) [address] [place], [address], 05/23/2023 16:28:23 05/23/19 24 05/23/2023 CBC/C OMPLE TE BLD COUNT W/DIF F lymphocytes, absolute count 3.51 x10'3 /uL 1.07-3 .43 high Not Available [facility] (Lab) [address] [place], [address], 05/23/2023 16:28:23 05/23/19 24 05/23/2023 CBC/C OMPLE TE BLD COUNT W/DIF F monocytes, absolute count 0.51 x10'3 /uL 0.29-0 .99 Not Available [facility] (Lab) [address] [place], [address], 05/23/2023 16:28:23 05/23/19 24 05/23/2023 CBC/C OMPLE TE BLD COUNT W/DIF F eosinophils, absolute count 0.22 x10'3 /uL 0.02-0 .53 Not Available [facility] (Lab) [address] [place], [address], 05/23/2023 16:28:23 05/23/19 24 05/23/2023 CBC/C OMPLE TE BLD COUNT W/DIF F basophils, absolute count 0.04 x10'3 /uL 0.01-0 .08 Not Available [facility] (Lab) [address] [place], [address], 05/23/2023 16:28:23 05/23/19 24 05/23/2023 CBC/C OMPLE TE BLD COUNT W/DIF F immature granulocytes ,absolute 0.03 x10'3 /uL 0.00-0 .05 Not Available [facility] (Lab) [address] [place], [address], 05/23/2023 16:28:23 05/23/19 24 05/23/2023 CBC/C OMPLE TE BLD COUNT W/DIF F nucleated red blood cells 0.0 % -0 Not Available [facility] (Lab) [address] [place], [address], 05/23/2023 16:28:23 05/23/19 24 05/23/2023 CBC/C OMPLE TE BLD COUNT W/DIF F NRBC# 0.00 x10'3 /uL Not Available [facility] (Lab) [address] [place], [address], 05/23/2023 16:28:23 05/23/19 24 05/23/2023 LIPID PANEL cholesterol 249 mg/dL 140-19 9 high NIH GRUPO NSUS RECOM MENDA TION FOR MARIIA STERO L: ADULT CHILD LOW RISK: <200 <170 BORDE RLINE : <200- 239 ----- HIGH RISK: >240 >200 Not Available [facility] (Lab) [address] [place], [address], 05/23/2023 17:21:27 05/23/19 24 05/23/2023 LIPID PANEL triglyceride s 206 mg/dL 0-150 high NIH GRUPO NSUS REPOR T RECOM MENDA TION FOR TRIGL YCERI SHARAN: ADULT CHILD LOW RISK: <150 ----- BODER LINE: 150-1 99 ----- HIGH RISK: >200 ----- Not Available [facility] (Lab) [address] [place], [address], 05/23/2023 17:21:27 05/23/19 24 05/23/2023 LIPID PANEL HDL cholesterol 77 mg/dL 40- Not Available [facility] (Lab) [address] [place], [address], 05/23/2023 17:21:27 05/23/19 24 05/23/2023 LIPID PANEL LDL cholesterol, calculated 131 mg/dL 0-130 high NIH GRUPO NSUS REPOR T RECOM MENDA TIONS FOR LDL: ADULT CHILD LOW RISK <130 <110 (OPTI MAL LDL) <100 ----- MICHELLE RLINE : 130-1 59 ----- HIGH RISK: >160 >130 A TRIGL YCERI DE RESUL T >400 INVAL IDATE S THE CALCU LATIO N FOR LDL FRACT IONAT ION - THE LDL RESUL T WILL NOT BE REPOR SHREE. Not Available [facility] (Lab) [address] [place], [address], 05/23/2023 17:21:27 05/23/19 24 05/23/2023 COMPR EHENS DARCY METAB OLIC PANEL sodium 134 mmol/ L 137-14 5 low Not Available [facility] (Lab) [address] [place], [address], 05/23/2023 17:21:40 05/23/19 24 05/23/2023 COMPR EHENS DARCY METAB OLIC PANEL potassium 4.3 mmol/ L 3.5-5. 1 Not Available [facility] (Lab) [address] [place], [address], 05/23/2023 17:21:40 05/23/19 24 05/23/2023 COMPR EHENS DARCY METAB OLIC PANEL chloride 105 mmol/ L 98-107 Not Available [facility] (Lab) [address] [place], [address], 05/23/2023 17:21:40 05/23/19 24 05/23/2023 COMPR EHENS DARCY METAB OLIC PANEL carbon dioxide 24 mmol/ L 22-30 Not Available [facility] (Lab) [address] [place], [address], 05/23/2023 17:21:40 05/23/19 24 05/23/2023 COMPR EHENS DARCY METAB OLIC PANEL anion gap 9.3 mmol/ L 14-22 low Not Available [facility] (Lab) [address] [place], [address], 05/23/2023 17:21:40 05/23/19 24 05/23/2023 COMPR EHENS DARCY METAB OLIC PANEL glucose 98 mg/dL 70-99 Not Available [facility] (Lab) [address] [place], [address], 05/23/2023 17:21:40 05/23/19 24 05/23/2023 COMPR EHENS DARCY METAB OLIC PANEL BUN 19 mg/dL 8-19 Not Available [facility] (Lab) [address] [place], [address], 05/23/2023 17:21:40 05/23/19 24 05/23/2023 COMPR EHENS DARCY METAB OLIC PANEL creatinine 0.64 mg/dL 0.66-1 .25 low Not Available [facility] (Lab) [address] [place], [address], 05/23/2023 17:21:40 05/23/19 24 05/23/2023 COMPR EHENS DARCY METAB OLIC PANEL GFR >60 Refer ence Range : [place] ge GFR Healt hy Adult : >60 mL/mi n/1.7 3 m2 Chron ic Kidne y Disea se: 15-60 mL/mi n/1.7 3 m2 Kidne y Failu re: <15/m L/min /1.73 m2 [email or web address] ov The MDRD study equat ion has not been valid ated in child jennifer <18 years of age; pregn ant women ; the elder ly >85 years of age; or in some racia l or ethni c subgr oups, such as Hispa nics. Outsi de the valid ated keith eters , estim ated GFR is less accur ate, requi ring clini shruthi judgm ent on a case- by-ca se basis . Clini shruthi inter preta tion for other races and ages must be made by the clini eros. The MDRD study equat ion has not been valid ated for the evalu ation of serum creat inine relat ed to nutri tj l statu s or medic ation usage . For perso ns <18 years of age, a pedia tric GFR calcu lator is avail able on the [facility] websi te: https ://spenser redding.alejandro martinez.o rg/pr ofess ional s/kdo qi/gf r_cal culat or Not Available [facility] (Lab) [address] [place], [address], 05/23/2023 17:21:40 05/23/19 24 05/23/2023 COMPR EHENS DARCY METAB OLIC PANEL alkaline phosphatase 56 U/L 38-126 Not Available [facility] (Lab) [address] [place], [address], 05/23/2023 17:21:40 05/23/19 24 05/23/2023 COMPR EHENS DARCY METAB OLIC PANEL alanine aminotransfe rase 36 U/L 0-35 high Not Available [facility] (Lab) [address] [place], [address], 05/23/2023 17:21:40 05/23/19 24 05/23/2023 COMPR EHENS DARCY METAB OLIC PANEL aspartate aminotransfe rase 29 U/L 15-37 Not Available [facility] (Lab) [address] [place], [address], 05/23/2023 17:21:40 05/23/19 24 05/23/2023 COMPR EHENS DARCY METAB OLIC PANEL bilirubin, total 0.50 mg/dL 0.20-1 .30 Not Available [facility] (Lab) [address] [place], [address], 05/23/2023 17:21:40 05/23/19 24 05/23/2023 COMPR EHENS DARCY METAB OLIC PANEL calcium 10.8 mg/dL 8.4-10 .2 high Not Available [facility] (Lab) [address] [place], [address], 05/23/2023 17:21:40 05/23/19 24 05/23/2023 COMPR EHENS DARCY METAB OLIC PANEL total protein 7.3 g/dL 6.3-8. 2 Not Available [facility] (Lab) [address] [place], [address], 05/23/2023 17:21:40 05/23/19 24 05/23/2023 COMPR EHENS DARCY METAB OLIC PANEL albumin 4.5 g/dL 3.4-5. 0 Not Available [facility] (Lab) [address] [place], [address], 05/23/2023 17:21:40 05/23/19 24 05/23/2023 COMPR EHENS DARCY METAB OLIC PANEL globulin 2.8 g/dL 2.6-4. 2 Not Available [facility] (Lab) [address] [place], [address], 05/23/2023 17:21:40 05/23/19 24 05/23/2023 COMPR EHENS DARCY METAB OLIC PANEL A/G ratio 1.6 ratio 1.0-2. 0 Not Available [facility] (Lab) [address] [place], [address], 05/23/2023 17:21:40 05/23/19 24 05/23/2023 HEMOG LOBIN A1C HA1C 6.0 % 4.0-6. 0 Diabe ilya Saurave charis Crite manuel: <5.7% Consi stent with absen ce of diabe ilya 5.7-6 .4% Consi stent with incre ased risk for diabe ilya (pred iabet es) >OR=6 .5% Consi stent with diabe ilya REFER ENCE: Diabe ilya Care 2016, 39( ppl.1 ):s13 -s22 Not Available [facility] (Lab) [address] [place], [address], 05/23/2023 21:28:35 01/23/20 24 01/23/2024 COMPR EHENS DARCY METAB OLIC PANEL sodium 134 mmol/ L 137-14 5 low Not Available [facility] (Lab) [address] [place], [address], 01/23/2024 12:20:45 01/23/20 24 01/23/2024 COMPR EHENS DARCY METAB OLIC PANEL potassium 4.0 mmol/ L 3.5-5. 1 Not Available [facility] (Lab) [address] [place], [address], 01/23/2024 12:20:45 01/23/20 24 01/23/2024 COMPR EHENS DARCY METAB OLIC PANEL chloride 104 mmol/ L 98-107 Not Available [facility] (Lab) [address] [place], [address], 01/23/2024 12:20:45 01/23/20 24 01/23/2024 COMPR EHENS DARCY METAB OLIC PANEL carbon dioxide 24 mmol/ L 22-30 Not Available [facility] (Lab) [address] [place], [address], 01/23/2024 12:20:45 01/23/20 24 01/23/2024 COMPR EHENS DARCY METAB OLIC PANEL anion gap 10.0 mmol/ L 14-22 low Not Available [facility] (Lab) [address] [place], [address], 01/23/2024 12:20:45 01/23/20 24 01/23/2024 COMPR EHENS DARCY METAB OLIC PANEL glucose 109 mg/dL 70-99 high Not Available [facility] (Lab) [address] [place], [address], 01/23/2024 12:20:45 01/23/20 24 01/23/2024 COMPR EHENS DARCY METAB OLIC PANEL BUN 14 mg/dL 8-19 Not Available [facility] (Lab) [address] [place], [address], 01/23/2024 12:20:45 01/23/20 24 01/23/2024 COMPR EHENS DARCY METAB OLIC PANEL creatinine 0.63 mg/dL 0.66-1 .25 low Not Available [facility] (Lab) [address] [place], [address], 01/23/2024 12:20:45 01/23/20 24 01/23/2024 COMPR EHENS DARCY METAB OLIC PANEL GFR >60 Refer ence Range : [place] ge GFR Healt hy Adult : >60 mL/mi n/1.7 3 m2 Chron ic Kidne y Disea se: 15-60 mL/mi n/1.7 3 m2 Kidne y Failu re: <15/m L/min /1.73 m2 www.n iddk. nih.g ov The MDRD study equat ion has not been valid ated in child jennifer <18 years of age; pregn ant women ; the elder ly >85 years of age; or in some racia l or ethni c subgr oups, such as Hispa nics. Outsi de the valid ated keith eters , estim ated GFR is less accur ate, requi ring clini shruthi judgm ent on a case- by-ca se basis . Clini shruthi inter preta tion for other races and ages must be made by the clini eros. The MDRD study equat ion has not been valid ated for the evalu ation of serum creat inine relat ed to nutri tj l statu s or medic ation usage . For perso ns <18 years of age, a pedia tric GFR calcu lator is avail able on the [facility] websi te: https ://psenser redding.alejandro hunty.o rg/pr ofess ional s/kdo qi/gf r_cal culat or Not Available [facility] (Lab) [address] [place], [address], 01/23/2024 12:20:45 01/23/20 24 01/23/2024 COMPR EHENS DRACY METAB OLIC PANEL alkaline phosphatase 60 U/L 38-126 Not Available [facility] (Lab) [address] [place], [address], 01/23/2024 12:20:45 01/23/20 24 01/23/2024 COMPR EHENS DARCY METAB OLIC PANEL alanine aminotransfe rase 160 U/L 0-35 high Not Available [facility] (Lab) [address] [place], [address], 01/23/2024 12:20:45 01/23/20 24 01/23/2024 COMPR EHENS DARCY METAB OLIC PANEL aspartate aminotransfe rase 106 U/L 15-37 high Not Available [facility] (Lab) [address] [place], [address], 01/23/2024 12:20:45 01/23/20 24 01/23/2024 COMPR EHENS DARCY METAB OLIC PANEL bilirubin, total 0.90 mg/dL 0.20-1 .30 Not Available [facility] (Lab) [address] [place], [address], 01/23/2024 12:20:45 01/23/20 24 01/23/2024 COMPR EHENS DARCY METAB OLIC PANEL calcium 10.8 mg/dL 8.4-10 .2 high Not Available [facility] (Lab) [address] [place], [address], 01/23/2024 12:20:45 01/23/2001/23/2024 COMPR EHENS DARCY METAB OLIC PANEL total protein 7.1 g/dL 6.3-8. 2 Not Available [facility] (Lab) [address] [place], [address], 01/23/2024 12:20:45 01/23/20 24 01/23/2024 COMPR EHENS DARCY METAB OLIC PANEL albumin 4.3 g/dL 3.4-5. 0 Not Available [facility] (Lab) [address] [place], [address], 01/23/2024 12:20:45 01/23/20 24 01/23/2024 COMPR EHENS DARCY METAB OLIC PANEL globulin 2.8 g/dL 2.6-4. 2 Not Available [facility] (Lab) [address] [place], [address], 01/23/2024 12:20:45 01/23/20 24 01/23/2024 COMPR EHENS DARCY METAB OLIC PANEL A/G ratio 1.5 ratio 1.0-2. 0 Not Available [facility] (Lab) [address] [place], [address], 01/23/2024 12:20:45 01/23/20 24 01/23/2024 T4 FREE free T4 1.04 NG/dL 0.78-2 .19 Not Available [facility] (Lab) [address] [place], [address], 01/23/2024 12:35:22 01/23/20 24 01/23/2024 TSH thyroid-stim ulating hormone 1.320 uIU/m L 0.465- 4.680 Not Available [facility] (Lab) [address] [place], [address], 01/23/2024 12:45:24 01/23/20 24 01/23/2024 T3 FREE free T3 3.3 pg/mL 2.77-5 .27 Not Available [facility] (Lab) [address] [place], [address], 01/23/2024 15:42:29 01/23/20 24 01/23/2024 CORTI NEFTALI, TOTAL larry 3.8 ug/dL CORTI NEFTALI RESUL T COMME NT: Refer ence Range : Befor e 10 a.m. Speci men: 4.5-2 2.7 Refer ence Range : After 5 p.m. Speci men: 1.7-[address] ease inter pret above resul ts accor dingl y Not Available [facility] (Lab) [address] [place], [address], 01/23/2024 15:42:34 01/23/20 24 01/24/2024 FSH/F OLLIC LE STIMU LAT. HORMO NE FSH - [facility] 8.2 mIU/m L Adult Femal e Range Folli cular phase 3.5 - 12.5 Ovula tion phase 4.7 - 21.5 Lutea l phase 1.7 - 7.7 Postm enopa usal 25.8 - 134.8 Perfo rmed at: CB - [facility] [address] [place] [address] Lab Direc tor: Yunier renae PhD, Phone : [phone] Not Available [facility] (Lab) [address] [place], [address], 01/24/2024 08:21:24 01/23/20 24 01/24/2024 LH/DEB VERONICA YANES HORMO NE LH - [facility] 13.6 mIU/m L Adult Femal e Range Folli cular phase 2.4 - 12.6 Ovula tion phase 14.0 - 95.6 Lutea l phase 1.0 - 11.4 Postm enopa usal 7.7 - 58.5 Perfo rmed at: CB - [facility] n [address] [facility], [place] [address] Lab Direc tor: Yunier renae PhD, Phone : [phone] Not Available [facility] (Lab) [address] [place], [address], 01/24/2024 08:21:26 01/23/20 24 01/24/2024 HEMOG LOBIN A1C HA1C 6.5 % 4.0-6. 0 high Diabe ilya Scree charis Crite manuel: <5.7% Consi stent with absen ce of diabe ilya 5.7-6 .4% Consi stent with incre ased risk for diabe ilya (pred iabet es) >OR=6 .5% Consi stent with diabe ilya REFER ENCE: Diabe ilya Care 2016, 39(White ppl.1 ):s13 -s22 Not Available [facility] (Lab) [address] [place], [address], 01/24/2024 18:21:42 01/29/20 24 01/29/2024 CBC/C OMPLE TE BLD COUNT W/DIF F white blood cells 11.0 x10'3 /uL 4.2-10 .8 high Not Available [facility] (Lab) [address] [place], [address], 01/29/2024 12:42:38 01/29/20 24 01/29/2024 CBC/C OMPLE TE BLD COUNT W/DIF F red blood cells 4.70 x10'6 /uL 3.80-5 .20 Not Available [facility] (Lab) [address] [place], [address], 01/29/2024 12:42:38 01/29/20 24 01/29/2024 CBC/C OMPLE TE BLD COUNT W/DIF F hemoglobin 14.2 g/dL 12.0-1 5.6 Not Available [facility] (Lab) [address] [facility] [place], [address], 01/29/2024 12:42:38 01/29/20 24 01/29/2024 CBC/C OMPLE TE BLD COUNT W/DIF F hematocrit 43.4 % 35.7-4 5.7 Not Available [facility] (Lab) [address] [place], [address], 01/29/2024 12:42:38 01/29/20 24 01/29/2024 CBC/C OMPLE TE BLD COUNT W/DIF F mean red cell volume 92.3 fL 82.0-9 9.0 Not Available [facility] (Lab) [address] [place], [address], 01/29/2024 12:42:38 01/29/20 24 01/29/2024 CBC/C OMPLE TE BLD COUNT W/DIF F mean red cell hemoglobin 30.2 pg 27.0-3 3.0 Not Available [facility] (Lab) [address] [place], [address], 01/29/2024 12:42:38 01/29/20 24 01/29/2024 CBC/C OMPLE TE BLD COUNT W/DIF F mean RBC HGB concentratio n 32.7 g/dL 31.0-3 6.0 Not Available [facility] (Lab) [address] [place], [address], 01/29/2024 12:42:38 01/29/20 24 01/29/2024 CBC/C OMPLE TE BLD COUNT W/DIF F red cell distribution width 14.2 % 11.8-1 5.5 Not Available [facility] (Lab) [address] [place], [address], 01/29/2024 12:42:38 01/29/20 24 01/29/2024 CBC/C OMPLE TE BLD COUNT W/DIF F platelets 472 x10'3 /uL 150-40 0 high Not Available [facility] (Lab) [address] [place], [address], 01/29/2024 12:42:38 01/29/20 24 01/29/2024 CBC/C OMPLE TE BLD COUNT W/DIF F mean platelet volume 10.8 fL 9.0-12 .4 Not Available [facility] (Lab) [address] [place], [address], 01/29/2024 12:42:38 01/29/20 24 01/29/2024 CBC/C OMPLE TE BLD COUNT W/DIF F neutrophils 76.6 % 39.0-7 2.0 high Not Available [facility] (Lab) [address] [place], [address], 01/29/2024 12:42:38 01/29/20 24 01/29/2024 CBC/C OMPLE TE BLD COUNT W/DIF F lymphocytes 18.3 % 16.0-4 7.0 Not Available [facility] (Lab) [address] [place], [address], 01/29/2024 12:42:38 01/29/20 24 01/29/2024 CBC/C OMPLE TE BLD COUNT W/DIF F monocytes 3.9 % 5.0-12 .0 low Not Available [facility] (Lab) [address] [place], [address], 01/29/2024 12:42:38 01/29/20 24 01/29/2024 CBC/C OMPLE TE BLD COUNT W/DIF F eosinophils 0.2 % 1.0-7. 0 low Not Available [facility] (Lab) [address] [place], [address], 01/29/2024 12:42:38 01/29/20 24 01/29/2024 CBC/C OMPLE TE BLD COUNT W/DIF F basophils 0.5 % 0.0-2. 0 Not Available [facility] (Lab) [address] [place], [address], 01/29/2024 12:42:38 01/29/20 24 01/29/2024 CBC/C OMPLE TE BLD COUNT W/DIF F immature granulocytes 0.5 % 0.00-0 .50 Not Available [facility] (Lab) [address] [place], [address], 01/29/2024 12:42:38 01/29/20 24 01/29/2024 CBC/C OMPLE TE BLD COUNT W/DIF F neutrophils, absolute count 8.40 x10'3 /uL 1.5-8. 0 high Not Available [facility] (Lab) [address] [place], [address], 01/29/2024 12:42:38 01/29/20 24 01/29/2024 CBC/C OMPLE TE BLD COUNT W/DIF F lymphocytes, absolute count 2.01 x10'3 /uL 1.07-3 .43 Not Available [facility] (Lab) [address] [place], [address], 01/29/2024 12:42:38 01/29/20 24 01/29/2024 CBC/C OMPLE TE BLD COUNT W/DIF F monocytes, absolute count 0.43 x10'3 /uL 0.29-0 .99 Not Available [facility] (Lab) [address] [place], [address], 01/29/2024 12:42:38 01/29/20 24 01/29/2024 CBC/C OMPLE TE BLD COUNT W/DIF F eosinophils, absolute count 0.02 x10'3 /uL 0.02-0 .53 Not Available [facility] (Lab) [address] [place], [address], 01/29/2024 12:42:38 01/29/20 24 01/29/2024 CBC/C OMPLE TE BLD COUNT W/DIF F basophils, absolute count 0.06 x10'3 /uL 0.01-0 .08 Not Available [facility] (Lab) [address] [place], [address], 01/29/2024 12:42:38 01/29/20 24 01/29/2024 CBC/C OMPLE TE BLD COUNT W/DIF F immature granulocytes ,absolute 0.05 x10'3 /uL 0.00-0 .05 Not Available [facility] (Lab) [address] [place], [address], 01/29/2024 12:42:38 01/29/20 24 01/29/2024 CBC/C OMPLE TE BLD COUNT W/DIF F nucleated red blood cells 0.0 % -0 Not Available [facility] (Lab) [address] [place], [address], 01/29/2024 12:42:38 01/29/20 24 01/29/2024 CBC/C OMPLE TE BLD COUNT W/DIF F NRBC# 0.00 x10'3 /uL Not Available [facility] (Lab) [address] [place], [address], 01/29/2024 12:42:38 02/27/20 24 02/27/2024 IRON/ TIBC PANEL total iron binding capacity 403 mcg/d L 265-47 5 Not Available [facility] (Lab) [address] [place], [address], 02/27/2024 15:26:31 02/27/20 24 02/27/2024 IRON/ TIBC PANEL % transferrin saturation 18 % 20-55 low Not Available [facility] (Lab) [address] [place], [address], 02/27/2024 15:26:31 02/27/20 24 02/27/2024 IRON/ TIBC PANEL unsaturated iron bind capacity 332 mcg/d L 126-38 2 Not Available [facility] (Lab) [address] [place], [address], 02/27/2024 15:26:31 02/27/20 24 02/27/2024 IRON/ TIBC PANEL iron 71 mcg/d L 42-175 Not Available [facility] (Lab) [address] [place], [address], 02/27/2024 15:26:31 02/27/20 24 02/27/2024 SIGIFREDO TIN ferritin 26 NG/mL 6.24-1 37 Not Available [facility] (Lab) [address] [place], [address], 02/27/2024 15:51:36 02/27/20 24 02/28/2024 ALPHA -1-AN TITRY PSIN, TOTAL [id number] trypsin, serum 143 mg/dL 101-18 7 Perfo rmed at: - [facility] [address] [place], [place] [id number] Lab Direc tor: Yunier renae PhD, Phone : [phone] Not Available [facility] (Lab) [address] [place], [address], 02/28/2024 08:10:22 02/27/20 24 02/28/2024 CERUL OPLAS MIN ceruloplasmi n 31.5 mg/dL 19.0-3 9.0 Perfo rmed at: - [facility] [address] [place], [place] [id number] Lab Direc tor: Yunier renae PhD, Phone : [phone] Not Available [facility] (Lab) [address] [place], [address], 02/28/2024 08:10:28 02/27/20 24 02/29/2024 ACTIN (SMOO TH MUSCL E) ANTIB SCOOTER actin (smooth muscle) antibody 7 units 0-19 Negat darcy 0 - 19 Weak posit darcy 20 - 30 Moder ate to stron g posit darcy >30 . Actin Antib odies are found in 52-85 % of patie nts with autoi mmune hepat itis or chron ic activ e hepat itis and in 22% of patie nts with prima ry bilia ry cirrh osis. Perfo rmed at: [facility] [address] [place] [address] Lab Direc tor: Yunier renae PhD, Phone : [phone] Not Available [facility] (Lab) [address] [place], [address], 02/29/2024 16:31:36 02/27/20 24 02/29/2024 MITOC HONDR IAL (M2) ANTIB SCOOTER mitochondria l (M2) antibody <20.0 units 0.0-20 .0 Negat darcy 0.0 - 20.0 Equiv ocal 20.1 - 24.9 Posit darcy >24.9 . Mitoc hondr ial (M2) Antib odies are found in 90-96 % of patie nts with prima ry bilia ry cirrh osis. Perfo rmed at: [address] [address] Lab Direc tor: Yunier renae PhD, Phone : [phone] Not Available [facility] (Lab) [address] [place], [address], 02/29/2024 16:32:04 02/27/20 24 03/01/2024 COPPE R, SERUM copper, serum 109 ug/dL 80-158 Test( s) 62705 6-Tannery Gummer per, Serum or Plasm a was devel oped and its perfo rmanc e rebekah cteri stics deter mined by [facility]. It has not been clear ed or appro francis by the Food and Drug Admin istra tion. Detec tion Limit = 5 Perfo rmed at: [facility] Amparo berrios [address] [facility] [place] [address] Lab Direc tor: Teetee meraz MD, Phone : [phone] Not Available [facility] (Lab) [address], [place], [address], 03/01/2024 11:09:14 02/23/20 24 02/23/2024 US, abdom en, limit ed [facility] [address] [facility] [address], [place] [address] [phone] Patien t Name: CHACE YANG Access ion #: [id number] Sex: F : 1975 1 Dictat ed By: Forrest Kam ms Attend ing Physic breanna: ELHAM ROWAN Orderi ng Physic breanna: ELHAM ROWAN Exam Date: 2023 07:25 AM Exam Name: US ABDOME N SINGLE ORGAN Admitt ing Diagno sis(es ): INDICA TION: elevat ed liver enzyme s TECHNI QUE: Multip le real-t justin sonogr aphic images of the abdome n were obtain ed. COMPAR BOBO: None FINDIN GS: The liver is increa sed in echoge nicity . The liver measur es 20.9 cm. No intrah epatic biliar y ductal dilata tion is noted. Hepato petal flow in the main portal vein. The gallbl adder wall measur es 0.4 cm and is unrema rkable . No gallst ones or sludge is seen. The common duct measur es 0.8 cm and is unrema rkable . No perich olecys tic fluid is noted. Negati ve sonogr aphic Sosa 's sign. The right kidney measur es 12.8 cm. No hydron ephros is. The pancre as is not well visual ized due to obscur ation from bowel gas. The visual ized portio ns of the IVC and aorta are grossl y unrema rkable . IMPRES TREMAYNE: 1. Hepati c steato sis. Hepato megaly . 2. Common bile duct slight ly dilate d. No choled ocholi thiasi s. No gallst ones. Electr onical ly Signed by: Forrest Kam ms at 2023 08:16: 45 AM Page 1 INTERFACE [facility] (Imaging) [address], [place], [address], 02/23/2024 09:19:07 06/04/19 25 06/03/2024 CT, angio gram, chest , w/wo contr ast [facility] [address] [facility] [address], [place] [address] [phone] Patien t Name: CHACE YANG Access ion #: [id number] Sex: F : 1975 7 Dictat ed By: Sourav byrd Attend ing Physic breanna: ELHAM ROWAN Orderi ng Physic breanna: ELHAM ROWAN Exam Date: 2024 12:37 PM Exam Name: CTA CHEST Admitt ing Diagno sis(es ): EXAM: CTA CHEST HISTOR Y: dyspne a on exerti on 48-yea r-old female with chest pain, shortn ess of breath , hypert ension , lower extrem ity swelli ng, elevat ed D-dime r. COMPAR BOBO: None Radiat ion Dose : Chest: CTDI volume is 33.9 mGy. Dose-l ength produc t is 1229 mGy*cm TECHNI QUE: Helica l CT images of the chest were perfor med with 100 mL Isovue [address] using pulmon arjun CTA protoc ol. Sagitt al and ray l reform atted images and 3D MIP images were obtain ed. This CT exam was perfor med using 1 or more of the follow ing dose reduct ion techni ques: Automa shree exposu re contro l, adjust ment of the mA and/or kv accord ing to patien t size, or the use of iterat darcy recons tructi on techni ques. FINDIN GS: No centra l pulmon arjun arteri al fillin g defect s are identi fied. There is mild scarri ng or atelec tasis in the lingul a. No other infilt rates, thorax , pleura l effusi ons, pulmon arjun edema, or suspic ious lung nodule s are identi fied. There is mild-t o-mode rate peribr onchia l thicke charis. No suspic ious medias tinal or axilla ry adenop athy. The heart is border line enlarg ed. No thorac ic aortic aneury sm or dissec tion. The liver is diffus fredo fatty densit y. There is mild-t o-mode rate thorac ic degene rative disc diseas e. IMPRES TREMAYNE: 1. No eviden ce of centra l pulmon arjun emboli sm. Poor contra st timing limits evalua tion of the more periph eral pulmon arjun arteri es. 2. Reacti ve airway s diseas e. The lungs are otherw ise clear. Page 1 [facility] [address] [place] [address] Patien t Name: CHACE YANG Access ion #: [id number] Sex: F : 1975 7 Dictat ed By: Sourav byrd Attend ing Physic breanna: MERLYN SHANKS [facility] Physic breanna: ELHAM ROWAN Exam Date: 2024 12:37 PM Exam Name: CTA CHEST Admitt ing Diagno sis(es ): 3. Border line cardio megaly . 4. Hepati c steato sis. Electr onical ly Signed by: Sourav byrd at 2024 13:20: 26 PM Page 2 INTERFACE [facility] (Imaging) [address] [place], [address], 06/03/2024 14:22:56 Result Notes None recorded. Problems Name Problem SNOMED Code Status Onset Date Resolution Date Notes Provider Name and Address Organization Details Recorded Time Insomnia 209975146 Active 2019 Not Available [facility] 3 06:54:49 Overweight 568051719 Active 2021 Not Available [facility] 3 06:54:49 Bronchitis 83945701 Active 2021 Not Available [facility] 3 06:54:49 Dyslipidem ia 858198547 Active 2020 Not Available [facility] 3 06:54:49 Obesity 760388075 Active 2021 Not Available [facility] 3 06:54:49 Anxiety 10907927 Active 2018 Not Available [facility] 3 06:54:49 Essential hypertensi on 38639535 Active 2018 Not Available [facility] 3 06:54:49 Insulin resistance 580481016 Active 2021 Not Available [facility] 3 06:54:49 Obstructiv e sleep apnea syndrome 10539884 Active 2018 CPAP use Not Available [facility] 3 06:54:49 COVID-19 266103264 Active 2022 Not Available [facility] 3 06:54:49 Hip pain 50699696 Active 2022 Not Available [facility] 3 06:54:49 Joint pain 22062469 Active 2022 Not Available [facility] 3 06:54:49 Acute conjunctiv itis of bilateral eyes 3978454788739 04 Active 2022 Not Available [facility] 3 06:54:49 Fatigue 64383257 Active 2022 Not Available [facility] 3 06:54:49 Hyperlipid emia 96064147 Active 2022 Surekha Dennison RN [facility], [place] - [facility] 3 11:42:31 Problem Notes None recorded. Procedures Surgical History Date Name Laterality Status Provider Name and Address Organization Details Recorded Time AUDIT SPECIALIST Surgery completed Not Available [facility] 04/27/2022 05:00:07 019 Repair bladder defect completed Not Available [facility] 04/27/2022 05:00:07 AUDIT SPECIALIST Surgery completed Not Available [facility] 04/27/2022 05:00:07 Knee arthroscopy/surgery completed Not Available [facility] 04/27/2022 05:00:07 rhinoseptoplasty completed Not Available [facility] 04/27/2022 05:00:07 drainage of ovarian cyst completed Not Available [facility] 04/27/2022 05:00:07 Imaging Results Imaging Date Name Status LastModified by Organiz ation Details LastModified Time 02/23/2024 US, abdomen, limited active INTERFACE [facility] (Imaging) [address] [place], [address], 02/23/2024 09:19:07 06/03/2024 CT, angiogram, chest, w/wo contrast active INTERFACE [facility] (Imaging) [address] [place], [address], 06/03/2024 14:22:56 Procedure Notes None recorded. Medical Equipment None Reported. Allergies Allergen ID Allergen Name Allergen Category Reaction Reaction Severity Criticality Documentation Date Start Date Code Code System Note Provider Name and Address Organization Details Recorded Time 9400 citrus bioflavon oids food,medi cation facial swelling Not available Not available 04/27/2022 95477 2 RxNorm Not Available [facility] 05:16:23 Medications Name Sig Start Date Stop Date Status Note LastModified by Organization Details LastModified Time metformin 500 mg tablet TAKE 1 TABLET BY MOUTH EVERY DAY 07/14 completed Not Available Not Available Not Available atorvastat in 10 mg tablet TAKE 1 TABLET BY MOUTH EVERY DAY active Not Available Not Available No t Available lisinopril 20 mg-hydroch lorothiazi de 12.5 mg tablet TAKE 1 TABLET BY MOUTH DAILY 2022 active Not Available Not Available Not Avai lable azithromyc in 250 mg tablet TAKE 2 TABLETS BY MOUTH FOR 1 DAY THEN TAKE 1 TABLET BY MOUTH DAILY FOR 4 DAYS 10/21 completed Not Available Not Available Not Available Claritin 10 mg tablet Take 1 tablet every day by oral route. 03/27 completed Not Available Not Available Not Available lysine 1,000 mg tablet Take by oral route. 2018 active Not Available Not Available Not Avai lable amlodipine 2.5 mg tablet 09/19 completed Not Available Not Available Not Available phentermin e 37.5 mg tablet TAKE 1 TABLET BY MOUTH DAILY BEFORE BREAKFAS T active last filled 022 next visit 022 Not Available Not Available Not Available hydrocodon e 10 mg-acetami nophen 325 mg tablet TAKE 1 TABLET BY MOUTH EVERY 4 HOURS 09/19 completed Not Available Not Available Not Available tramadol 50 mg tablet 09/19 completed Not Available Not Available Not Available alprazolam 0.25 mg tablet 09/19 completed Not Available Not Available Not Available tamsulosin 0.4 mg capsule 09/19 completed Not Available Not Available Not Available hydrocodon e 7.5 mg-acetami nophen 325 mg tablet 09/19 completed Not Available Not Available Not Available fluoxetine 20 mg tablet 09/19 completed Not Available Not Available Not Available lisinopril 10 mg tablet TAKE 1 TABLET BY MOUTH DAILY 09/19 completed Not Available Not Available Not Available fluoxetine 10 mg capsule TAKE 1 CAPSULE BY MOUTH EVERY DAY active Not Available Not Available No t Available sertraline 25 mg tablet 09/19 completed Not Available Not Available Not Available montelukas t 10 mg tablet TAKE 1 TABLET BY MOUTH EVERY DAY 12/07 completed Not Available Not Available Not Available codeine 10 mg-guaifen esin 100 mg/5 mL oral liquid 09/19 completed Not Available Not Available Not Available ergocalcif matthew (vitamin D2) 1,250 mcg (50,000 unit) capsule Take 1 capsule every week by oral route. active Not Available Not Available No t Available lisinopril 10 mg-hydroch lorothiazi de 12.5 mg tablet TAKE 1 TABLET BY MOUTH EVERY DAY 07/14 completed Not Available Not Available Not Available levofloxac in 500 mg tablet TAKE 1 TABLET BY MOUTH EVERY DAY 09/19 completed Not Available Not Available Not Available zolpidem 10 mg tablet TAKE 1 TABLET BY MOUTH EVERY DAY AT BEDTIME 2022 active Not Available Not Available Not Avai lable methylpred nisolone 4 mg tablets in a dose pack FOLLOW PACKAGE DIRECTIO NS 10/21 completed Not Available Not Available Not Available cefdinir 300 mg capsule 09/19 completed Not Available Not Available Not Available metformin ER 500 mg tablet,ext ended release 24 hr TAKE 1 TABLET BY MOUTH EVERY DAY 12/07 completed Not Available Not Available Not Available tobramycin 0.3 %-dexameth asone 0.1 % eye drops,susp ension SHAKE LIQUID AND INSTILL 1 DROP IN BOTH EYES THREE TIMES DAILY 12/07 completed Not Available Not Available Not Available rosuvastat in 10 mg tablet TAKE 1 TABLET BY MOUTH EVERY DAY 08/10 completed muscle cramps Not Available Not Available Not Available eszopiclon e 3 mg tablet 09/19 completed Not Available Not Available Not Available Co Q-10 10/21 completed Not Available Not Available Not Available Colace 03/11 completed Not Available Not Available Not Available ibuprofen prn 2018 active Not Available Not Available Not Avai lable Vitamin D3 2021 active Not Available Not Available Not Avai lable Mucinex 1-2 /day 2018 active Not Available Not Available Not Avai lable B12 10/21 completed Not Available Not Available Not Available Kat Allergy 2020 active Not Available Not Available Not Avai lable Flonase Allergy Relief 50 mcg/actuat ion nasal spray,susp ension Bradford 1 spray every day by intranas al route. 10/21 completed Not Available Not Available Not Available Wegovy 0.25 mg/0.5 mL subcutaneo us pen injector INJECT 0.25 MG WEEKLY FOR 4 WEEKS active Not Available Not Available No t Available Wegovy 0.5 mg/0.5 mL subcutaneo us pen injector inject 0.5mg weekly for 4wks then go to 1mg weekly 2022 active Not Available Not Available Not Avai lable Paxlovid 300 mg (150 mg x 2)-100 mg tablets in a dose pack Take 3 tablets twice a day by oral route for 5 days. 12/07 completed Not Available Not Available Not Available Vitals Date Recorded Body mass index (BMI) Body height Heart rate Body temperature Body weight Systolic blood pressure Diastolic blood pressure Provider Name and Address Organization Details Last Updated DateTime 2 44.1 kg/m2 165.1 cm 94 /min 98.6 [degF] 589287. 98 g 128 mm[Hg] 80 mm[Hg] Not Available [facility] 3 05:03:02 Date Recorded Body mass index (BMI) Body height Heart rate Body temperature Body weight Systolic blood pressure Diastolic blood pressure Provider Name and Address Organization Details Last Updated DateTime 2 44.1 kg/m2 165.1 cm 70 /min 98.7 [degF] 153414. 98 g 120 mm[Hg] 72 mm[Hg] Not Available [facility] 3 05:03:02 Date Recorded Body mass index (BMI) Body height Heart rate Body temperature Body weight Systolic blood pressure Diastolic blood pressure Provider Name and Address Organization Details Last Updated DateTime 3 45.1 kg/m2 165.1 cm 72 /min 97.3 [degF] 667979. 53 g 130 mm[Hg] 76 mm[Hg] Not Available [facility] 3 05:03:02 Date Recorded Body height Body mass index (BMI) Body weight Body temperature Heart rate Systolic blood pressure Diastolic blood pressure Provider Name and Address Organization Details Last Updated DateTime 3 165.1 cm 47.1 kg/m2 738627. 64 g 97.2 [degF] 80 /min 130 mm[Hg] 72 mm[Hg] SHAYLEE Dewey [facility] 3 10:56:07 Date Recorded Body height Body mass index (BMI) Body weight Body temperature Heart rate Systolic blood pressure Diastolic blood pressure Provider Name and Address Organization Details Last Updated DateTime 3 165.1 cm 48.6 kg/m2 290409. 97 g 97.5 [degF] 76 /min 142 mm[Hg] 74 mm[Hg] SHAYLEE Dewey [facility] 3 11:34:44 Social History Question Answer Notes LastModified by Organization Details LastModified Time Tobacco Smoking Status Never Smoker Ghazala lama [facility] 12/07/2022 11:13:40 Do You Have An Advance Directive? No [id number] Information not available 04/27/2022 What Is Your Level Of Alcohol Consumption? Occasional [id number] Information not available 04/27/2022 What Is Your Level Of Caffeine Consumption? Moderate [id number] Information not available 04/27/2022 How Much Tobacco Do You Chew? None [id number] Information not available 04/27/2022 In The 14 Days Before Symptom Onset, Have You Had Close Contact With A Laboratory-confi rmed COVID-19 While That Case Was Ill? No Information not available 12/07/2022 In The 14 Days Before Symptom Onset, Have You Had Close Contact With A Person Who Is Under Investigation For COVID-19 While That Person Was Ill? No Information not available 12/07/2022 What Type Of Diet Are You Following? REGULAR [id number] Information not available 04/27/2022 Which Illicit Or Recreational Drugs Have You Used? None Information not available 12/07/2022 Do You Or Have You Ever Used E-cigarettes Or Vape? Never Used Electronic Cigarettes Information not available 12/07/2022 What Is The Highest Grade Or Level Of School You Have Completed Or The Highest Degree You Have Received? 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 No Information not available 12/07/2022 What Is The Fluoride Status Of Your Home? Unknown Information not available 12/07/2022 Are There Any Guns Present In Your Home? No Information not available 12/07/2022 Do You Use Insect Repellent Routinely? No Information not available 12/07/2022 Where Do You Live? [facility] Information not available 12/07/2022 Do You Have A Medical Power Of Chip Separator? No Information not available 12/07/2022 What Was The Date Of Your Most Recent Tobacco Screening? 12/07/2022 [email or web address] Information not available 12/07/2022 Have You Ever Been Counseled For Unhealthy Alcohol Use? No Information not available 12/07/2022 Do You Have Any Pets? Yes Information not available 12/07/2022 What Is Your Relationship Status? [id number] Information not available 04/27/2022 Do You Use Your Seat Belt Or Car Seat Routinely? Yes Information not available 12/07/2022 Do You Have Smoke And Carbon Monoxide Detectors In Your Home? Yes Information not available 12/07/2022 Are You Passively Exposed To Smoke? No Information not available 12/07/2022 Do You Or Have You Ever Used Smokeless Tobacco? Never Used Smokeless Tobacco [id number] Information not available 04/27/2022 Are There Any Smokers In Your House? No Information not available 12/07/2022 How Much Tobacco Do You Smoke? No [id number] Information not available 04/27/2022 What Types Of Sporting Activities Do You Participate In? None Information not available 12/07/2022 Do You Feel Stressed (tense, Restless, Nervous, Or Anxious, Or Unable To Sleep At Night)? [id number] Information not available 12/07/2022 Do You Use Any Illicit Or Recreational Drugs? No Information not available 12/07/2022 Do You Use Sunscreen Routinely? Yes Information not available 12/07/2022 Has Tobacco Cessation Counseling Been Provided? No Not Needed-ne kvng Smoked Information not available 12/07/2022 How Many Years Have You Smoked Tobacco? 0 Information not available 12/07/2022 Have You Recently Traveled Abroad? No Information not available 12/07/2022 Do You Have Any Dietary Restrictions? No Information not available 12/07/2022 Do You Or Have You Ever Used Any Other Forms Of Tobacco Or Nicotine? No Information not available 12/07/2022 Sex: Female Functional Status Question Answer Note LastModified by Organizat ion Details LastModified Time What is your exercise level? Moderate [id number] Information not available 04/27/2022 Mental Status None recorded. Family History Relationship Description Onset Age of this Age Resolved Age Notes LastModified by Organization Details LastModified Time Mother Hypertensive disorder [id number] Not available 04/27/2022 05:00:10 Mother Vitamin D deficiency Not available 12/07 11:13:39 Father Malignant melanoma 55 Not available 2022 11:13:39 Father Hypertensive disorder [id number] Not available 04/27/2022 05:00:10 Brother Sleep apnea Not availab le 12/07/2022 11:13:39 Brother Vitamin D deficiency Not available 12/07 11:13:39 Brother Hypertensive disorder [id number] Not available 04/27/2022 05:00:10 Medical History Condition Response NERVE DISEASE N BLINDNESS N RHEUMATIC FEVER N KIDNEY STONES N BLADDER PROBLEMS N MRSA N OTHER # 1 N POLIO N LUNG DISEASE/DISORDER N RADIATION / CHEMOTHERAPY N COPD N Other # 2 N BLOOD DISEASES N EAR OR HEARING PROBLEMS N MUMPS N DEPRESSION (INCLUDING POST ) N BOWEL PROBLEMS N STROKE/TIA N ULCERS N BENIGN PROSTATIC HYPERPLASIA N MEASLES N MYOCARDIAL INFARCTION N OBESITY N GERD/NAUSEA N ANEURYSM N URINARY/BLADDER/KIDNEY PROBLEMS Y CORONARY ARTERY DISEASE (CAD) N ADDICTION CONCERNS N Impotence N ENDOMETRIOSIS N USE OF BLOOD THINNERS N SKIN PROBLEMS N GASTROINTESTINAL DISORDER N PERIPHERAL VASCULAR DISEASE N MUSCLE,JOINT OR BONE PROBLEMS N GASTROINTESTINAL BLEEDING N BLOOD CLOTS N ASTHMA N CATARACTS N ERECTILE DYSFUNCTION N VARICOSITIES N GI PROBLEMS N Low Testosterone N INFERTILITY N AIDS/HIV N CHEMOTHERAPY / RADIATION N LIVER DISEASE N MALE HYPOGONADISM N HYPERTENSION Y Deficiency N TOURETTE'S N ANXIETY DISORDER Y BLOOD TRANSFUSION N ANEMIA/BLOOD DISORDER N CHRONIC EAR INFECTIONS N BRONCHITIS N TUBERCULOSIS N GLAUCOMA N FOOT PROBLEM N DIVERTICULITIS N SLEEP APNEA Y CHICKENPOX N INFECTIOUS DISEASE N PROSTATE N HEART ARRHYTHMIA N INSOMNIA Y HIGH CHOLESTEROL / HYPERLIPIDEMIA N EYE PROBLEMS N HYPERTHYROIDISM N EDEMA N CHRONIC PAIN SYNDROME N HYPOTHYROIDISM N CAROTID BLOCKAGE N CONSTIPATION N BACK / NECK PROBLEMS N HAVE YOU BEEN HOSPITALIZED OR SEEN IN [facility] IN THE PAST YEAR ? N ATHEROSCLEROSIS N BREAST PROBLEMS N DIALYSIS N ECZEMA N OSTEOPOROSIS N ARTHRITIS N APPENDICITIS N DIABETES, TYPE N BAD TEETH N ENT N HEARTBURN / REFLUX N AUTISM SPECTRUM DISORDER (ASD) N HEPATITIS / LIVER DISEASE N GOUT N SLEEP DISORDER N ALZHEIMER'S DISEASE N Brain Problems N DEMENTIA N HERPES N SEIZURES/EPILEPSY N HEADACHES/MIGRAINES N VASCULAR DISEASE N PACEMAKER N Blood Disorder N DIZZINESS N HEART DISEASE/HEART PROBLEMS N KIDNEY DISEASE N MULTIPLE SCLEROSIS N CANCER: SPECIFY N CARDIAC ARRHYTHMIA N ATRIAL FIBRILLATION N Gall Stones N PULMONARY EMBOLISM N AUTOIMMUNE DISEASE N Gynecological HistoryNo gynecological history recorded. Obstetrics History GPAL:G 0 P 0 0 0 0 Immunizations Vaccine Type Date Status Note Provider Nam e and Address Organization Details Recorded Time COVID-19, mRNA, LNP-S, PF, 30 mcg/0.3 mL dose 1 completed Not Available [facility] 12/08/2022 06:54:50 COVID-19, mRNA, LNP-S, PF, 30 mcg/0.3 mL dose 1 completed Not Available [facility] 12/08/2022 06:54:50 COVID-19, mRNA, LNP-S, PF, 30 mcg/0.3 mL dose 0 completed Not Available [facility] 12/08/2022 06:54:50 Influenza, split virus, quadrivalent, preservative 2 completed Not Available [facility] 12/08/2022 06:54:50 Influenza, split virus, quadrivalent, preservative 1 completed Not Available [facility] 12/08/2022 06:54:50 Past Encounters Encounter ID Performer Location Encounter Start Date Encounter Closed Date Diagnosis/Indication Diagnosis SNOMED-CT Code Diagnosis ICD10 Code Diagnosis Note [id number] [facility] [address] [address] 08/10/2020 00:00:00 08/10/2020 21:50:29 [id number] [facility] Internal Med [facility] [address] [place], [place] [address]e., [address] [address] 12/24/2020 00:00:00 12/27/2020 20:41:01 [id number] [facility] Internal Med [facility] [address] [place] [address] [address] [address] 06/24/2021 00:00:00 06/26/2021 14:02:20 [id number] [facility] Internal Med [facility] [address] [place] [address] Ave[address] [address] 07/14/2021 00:00:00 07/14/2021 21:14:00 [id number] [facility] Internal Med [facility] [address] [place] [address] Ave[address] [address] 10/21/2021 00:00:00 11/01/2021 16:07:08 [id number] [facility] Internal Med [facility] [address] [place] [address] Ave[address] [address] 11/18/2021 00:00:00 12/26/2021 20:01:10 [id number] [facility] Internal [facility] [address] [place] [address] [address] [address] 01/03/2022 00:00:00 01/03/2022 22:44:10 [id number] [facility] [address] [place] [address] [place] [address] 03/11/2022 00:00:00 03/12/2022 14:58:28 [id number] Dmitry Rowan MD [facility] [address] [place] [address] 07/08/2022 10:48:26 07/08/2022 11:28:41 Essential hypertension 93301171 I10 Joint pain 23941986 M25. 50 Overweight 370062265 E66 .3 [id number] Dmitry Rowan MD [facility] Internal [facility] [address] [place] [address] [place] [address] 12/07/2022 11:09:57 12/07/2022 12:24:56 Essential hypertension 79195541 I10 Overweight 049212392 E66 .3 Joint pain 65057719 M25. 51 Fatigue 22641718 R53.83 Dyslipidemia 422627478 E 78.5 Insomnia 215158951 G47.0 0 Obesity 543190554 E66.9 Anxiety 85865809 F41.9 Health Concerns Section Related Observation LastModified by Organization Detai ls LastModified Time None Recorded Concern Status LastModified by Organization Details LastModified Time None Recorded Advance Directives Directive N: Payers Encounter Date Sequence Insurance Name Policy Number Policy [place] Covered Member ID [place] Member ID Guarantor Name 07/08/2022 1 [place] Sandhya Jamie [id number] Sandhya Jamie 12/07/2022 1 [place] [id number] Sandhya Jamie [id number] Sandhya Jamie Notes Date Note Type Note Provider Name and Address Organization Details Recorded Time 07/08/2022 text/html Still with some joint pain overweight unsuccessful in losing any like to try some medications insomnia stable Dmitry Rowan MD [address], [address], [place], [address], [employer] [facility] 07/24/2022 13:33:15 12/07/2022 text/html Insurance proble ms so weight loss drug has been spotty and has been taking it consistently she has been stressed because of work insomnia persistent high blood pressure asymptomatic wait a big issue because now getting a lot of joint pain Dmitry Rowan MD [address], [place], [address], [employer] [facility] 12/10/2022 13:42:53 OBGyn Episode No OBEpisode recorded.
--- OUTSIDE RECORDS SUMMARY | 2024-06-03 17:48 | XMS_ITS | Clinical Summary ---
Author Organization [facility] Address [address] [place] [address] Care Team Providers Care Dinkey Dispatcher Name Role Phone Dmitry Rowan MD Primary Care Provider Encounters Date Type Department Care Team Description 04/05/2024 Telephone [facility] Diabetes and Endocrinology [address] [place] [phone] Cali King MD call to patient for Insurance information from Last 3 Months Social History Tobacco Use Types Packs/Day Years Used Date Smoking Tobacco: Never Assessed Personal Safety Answer Date Recorded Getting School Help Needed Not on file 05/13 Comments Unknown Sex and Gender Information Value Date Recorded Sex Assigned at Not on file Legal Sex Female 9:55 AM [employer] Gender Identity Not on file Sexual Orientation Not on file Plan of Treatment Not on file Care Teams Dinkey Dispatcher Relationship Specialty Start Date End Date Dmitry Rowan MD PCP - General Internal Medicine 01/14/21
== END 2024-06-03 15:57 | disposition home or self-care (01) ==
PROVIDERS: PCP Internal Medicine; Visit Provider Internal Medicine
DX: R60.0 Localized edema (principal)
CPT/HCPCS: 93970